=== PATIENT | female | born 2005 | race Caucasian/White ===

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

== ENCOUNTER → 2023-04-22 09:55 | Outpatient (POV) | payer OTHER, SELFPAY ==
--- NOTE | 2023-04-22 10:10 | A.OFFVIS_ITS ---
HPI Data of Consult Patient: new to practice Consult date: 04/22/23 Requesting Physician: Coretta Menjivar APRN Primary Care Provider: Yadi Martino APRN Consult Narrative History of present illness: Ms. Patino is a 17 year old female who presents today as a new patient. She is a referral from [facility]. Today she rates her pain an 8 out of 10. Patient states all of her pain is related to her face and jaw. Patient states she has been experiencing bilateral TMJ symptoms over more than 6 months. Patient states that this is unrelated to any specific trauma or injury. She states that she had been with some friends playing volleyball and the next day she woke up sore in her drawls with a tightness. She states it can come and go however she does experience significant popping and clicking with jaw movement. Patient states it does make it difficult to eat. Patient states the pain does interfere with her ability perform activities of daily living. Patient has been tried on [id number] Tylenol and ibuprofen along with prescription strength meloxicam by her primary care provider with minimal improvement. Patient has also tried ice. She does state that she frequently experiences sinus pressure and recurrent headaches due to the pain. She also states she has ear pressure and pain. She does state when she was younger she did frequently grind her teeth and that she has even been using a mouthguard to help minimize clenching her teeth at night however this was making her symptoms worse with more pre ssure. Patient is interested in any help we may be able to provide. Patient is not on any scheduled medications. Patient states she has had her hearing checked and everything came back normal. Her Narendra has been reviewed and is appropriate. CC: Coretta Menjivar APRN [facility] Disclaimer: The information contained in this section may have been updated after the patient was seen, as this information can be updated by other users. Medical History Type 1 diabetes Social History Smoking Status: Never smoker alcohol intake: never current occupational status: employed Travel in the last 8 weeks: None Review of Systems Review of Systems Review of systems:: pertinent systems reviewed and negative unless documented below Review of systems (narrative): Review of Systems: General: No recent weight changes, no fever, no sleep disturbances Respiratory: No cough, no shortness of air, no recurring pulmonary infections Cardiovascular/peripheral vascular: No chest pain, no palpitations, no edema, no shortness of breath Gastrointestinal: No new onset incontinence, normal bowel movements reported Genitourinary: No new onset incontinence Musculoskeletal: Bilateral jaw pain/popping/clicking Psychiatric: [Normal mood/affect] Neurological: [Denies weakness in extremities], [denies balance issues] Meds Home Medications and Allergies Home Medications Medication Instructions Recorded Confirmed Type insulin aspart U-100 100 unit/mL continuous subcutaneous infusion 12/29/22 03/25/23 History subcutaneous solution (Novolog U-100 Insulin aspart) norgestimate 0.18 mg/0.215 mg/0.25 1 tab PO DAILY 12/29/22 03/25/23 History mg-ethinyl estradiol 25 mcg tablet (Ytx-Am-Ftfbjexr) azelastine 137 mcg (0.1 %) nasal 2 spray intranasal BID 30 days #30 03/25/23 03/25/23 Rx spray aerosol mL glucagon 3 mg/actuation nasal 3 mg intranasal ONCE PRN 03/25/23 03/25/23 History spray (Baqsimi) meloxicam 7.5 mg tablet 7.5 mg PO DAILY 30 days #30 tabs 03/25/23 03/25/23 Rx sertraline 100 mg tablet 100 mg PO DAILY 30 days #30 tabs 03/25/23 03/25/23 Rx New Prescriptions to Start Prescriptions: Allergies Allergy/AdvReac Type Severity Reaction Status Date / Time No Known Allergies Allergy Verified 03/25/23 13:49 Objective Narrative: Physical Exam: General: Alert and oriented x3, no acute distress, pleasant and cooperative Lungs: Respirations even and unlabored, symmetrical chest expansion Eyes: PERRL Musculoskeletal: Flexion and extension of cervical spine within normal limits; point tenderness along bilateral TMJ Neurological: Speech clear, no gross sensory deficit Additional findings Additional findings: FINAL REPORT TECHNIQUE: Thin section axial CT with coronal reconstruction without IV contrast CLINICAL HISTORY: RT TEMPOROMANDIBULAR JOINT DISORDER,TMJ TENDERNESS RT COMPARISON: None FINDINGS: The mandible is without focal bony lesion or fracture. The TMJs are appropriately located without evidence of degenerative change or bony erosion. There is mild mucosal thickening of the paranasal sinuses most pronounced in the left ethmoid compatible with mild sinusitis. IMPRESSION: Unremarkable appearance of the mandible and TMJs. Mild sinus disease. Reviewed, Interpreted and Dictated by Moy Kerr MD Transcribed by Julia Das Authenticated and [facility] Assessment and Plan *Assessment and plan (1) TMJ dysfunction: Status: Acute Category: Medical Code(s): M26.609 - Unspecified temporomandibular joint disorder, unspecified side (2) Jaw pain: Status: Acute Category: Medical Code(s): R68.84 - Jaw pain Plan Patient is experiencing worsening pain in her bilateral jaws related to bilateral TMJ dysfunction. I have discussed with the patient that she may benefit from bilateral TMJ joint injection. Risk and benefits were discussed with the patient and she would like to proceed forward with this plan of care. I have also discussed with the patient in future that she may benefit from referral to ENT specialist. Patient states she would like to try the injections first. Patient will be scheduled for bilateral TMJ joint injections Patient has been instructed to contact the clinic with any concerns before the next appointment. Dr. Spencer has reviewed this note and agrees with this plan of care. This note was dictated using voice recognition software and make contain errors or omissions.
[2023-04-22 10:27] VITALS: BP 116/67; PULSE 74; RESP 18; O2SAT 100
== END ==
PROVIDERS: PCP Nurse Practitioner Family; Visit Provider Nurse Practitioner Family
DX: M26.603 Bilateral temporomandibular joint disorder, unspecified (principal); R68.84 Jaw pain
CPT/HCPCS: 99202; G0463

== ENCOUNTER 2023-05-01 11:49 | Day surgery (SDC) | payer OTHER, SELFPAY ==
[2023-05-01 12:23] VITALS: BP 121/75; PULSE 73; RESP 16; O2SAT 95
--- NOTE | 2023-05-01 12:26 | PC.NURSE ---
1220- PT BLOOD SUGAR 138 PER DEXCOM
[2023-05-01 12:35] VITALS: BP 116/64; PULSE 75; RESP 16; O2SAT 96
[2023-05-01] MEDS: LIDOCAINE 1% 5ML PF VIAL 5 ML (12:38)
--- NOTE | 2023-05-01 13:00 | P.PCN_ITS ---
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 She has failed all conservative therapy including wearing a bite guard. Will do bilateral temporomandibular joint injections today to see if this helps with her pain symptoms. Procedure Details:: Bilateral TMJ injection Informed consent was obtained risk and benefits of the procedure were explained to the patient. Patient was taken the procedure room. The area in front of the tragus at the temporomandibular joint was cleansed using alcohol prep. A 25- gauge needle was inserted on each side and we injected 3 mL bupivacaine 0.25% and Depo-Medrol 40 mg into each temporomandibular joint. The patient tolerated the procedure well with no complications. Plan and Disposition:: Will follow-up with this patient in 2 weeks. Will reevaluate symptoms at that time.
== END 2023-05-01 12:35 | disposition home or self-care (01) ==
LOC: SC.PAINP 11:51
PROVIDERS: PCP Nurse Practitioner Family; Visit Provider Anesthesiology
DX: M26.603 Bilateral temporomandibular joint disorder, unspecified (principal)
CPT/HCPCS: 20605; J1030

== ENCOUNTER → 2023-05-11 14:03 | Outpatient (POV) | payer OTHER, SELFPAY ==
--- NOTE | 2023-05-11 15:21 | EXP.PAIN.SOA ---
[facility] Pain Management SOAP Note Subjective:: Patient is a pleasant 17-year-old female who presents today for follow-up of bilateral TMJ joint injections on 05/01/2023. We are currently treating the patient for TMJ dysfunction. Today she rates her pain a 2 out of 10. Patient denies any new trauma or injury from our last visit. Patient states that following the injection she did not notice any improvement in her overall pain symptoms. She states that she was very sore the initial day of the injection but that she has noticed decreased popping and clicking sensations in her jaw with talking or chewing. She states that they are still there but it has calmed down from what it was previously. Patient does states she continues to have a tightness in her jaw. Patient is currently managed with meloxicam 7.5 mg daily. Patient denies any heart or kidney issues. Her Narendra has been reviewed and is appropriate. Review of Systems: General: No recent weight changes, no fever, no sleep disturbances Respiratory: No cough, no shortness of air, no recurring pulmonary infections Cardiovascular/peripheral vascular: No chest pain, no palpitations, no edema, no shortness of breath Gastrointestinal: No new onset incontinence, normal bowel movements reported Genitourinary: No new onset incontinence Musculoskeletal: Jaw tightness/pain Psychiatric: [Normal mood/affect] Neurological: [Denies weakness in extremities], [denies balance issues] Objective:: Physical Exam: General: Alert and oriented x3, no acute distress, pleasant and cooperative Lungs: Respirations even and unlabored, symmetrical chest expansion Eyes: PERRL Musculoskeletal: Flexion and extension of cervical spine within normal limits Neurological: Speech clear, no gross sensory deficit Assessment:: TMJ joint dysfunction Plan:: I have discussed with the patient that she may benefit from repeat TMJ joint injections however I have recommended that we increase her meloxicam to 15 mg daily first. I will send in a prescription for 1 month. Patient will return to clinic in 2 weeks for reevaluation of symptoms and plan of care. Patient has been instructed to contact the clinic with any concerns before the next appointment. Dr. Spencer has reviewed this note and agrees with this plan of care. This note was dictated using voice recognition software and make contain errors or omissions. [facility] Disclaimer: The information contained in this section may have been updated after the patient was seen, as this information can be updated by other users. Medical History Type 1 diabetes Family History Other Unknown family medical history Social History Smoking Status: Never smoker alcohol intake: never current occupational status: employed Travel in the last 8 weeks: None
[2023-05-11 15:40] VITALS: BP 112/74; PULSE 76; RESP 18; O2SAT 98
== END ==
LOC: SC.PAIN 14:04
PROVIDERS: PCP Nurse Practitioner Family; Visit Provider Nurse Practitioner Family
DX: M26.603 Bilateral temporomandibular joint disorder, unspecified (principal)
CPT/HCPCS: 99212; G0463

== ENCOUNTER → 2023-05-22 08:20 | Outpatient (POV) | payer OTHER, SELFPAY ==
[2023-05-22 08:36] VITALS: BP 117/73; PULSE 90; RESP 18; O2SAT 100; BMI 19.3
--- NOTE | 2023-05-22 08:48 | A.OFFVIS_ITS ---
[facility] Pain Management SOAP Note Subjective:: Patient is a pleasant 17-year-old female comes our clinic today for follow-up visit regarding bilateral TMJ joint injections on 05/01/2023. Also, she is following up to report on efficacy of meloxicam dose increased to 15 mg 1 p.o. twice daily. Patient seems to be doing some better. However, she admits not wearing her bite guard due to it being uncomfortable. I encouraged her to continue with bite guard. Meloxicam 15 mg 1 p.o. twice daily. Also, I gave the option to the patient to receive her meloxicam from her PCP. Objective:: Patient is awake alert [place] x 3. No acute distress. Flexion-extension lumbar spine somewhat guarded secondary to pain. Deep tendon reflexes upper and lower extremities normal. Motor strength upper and lower extremities normal. There is no gross sensory deficit. Gait is normal. Assessment:: Chronic jaw pain. Bilateral TMJ. Plan:: Patient will reach out to us if needed. [facility] Disclaimer: The information contained in this section may have been updated after the patient was seen, as this information can be updated by other users. Medical History Type 1 diabetes Family History Other Unknown family medical history Social History Smoking Status: Never smoker alcohol intake: never substance use type: denies use current occupational status: employed Travel in the last 8 weeks: None
== END ==
LOC: SC.PAIN 08:20
PROVIDERS: PCP Nurse Practitioner Family; Visit Provider Nurse Anesthetist, Certified Registered
DX: M26.603 Bilateral temporomandibular joint disorder, unspecified (principal); R68.84 Jaw pain; G89.29 Other chronic pain
CPT/HCPCS: 99212; G0463

== ENCOUNTER 2023-06-16 13:32 | Outpatient (CLI) | payer OTHER, SELFPAY | END 2023-06-16 23:59 | LOC: LAB.DROPOF 13:34 | PROVIDERS: PCP Nurse Practitioner Family; Visit Provider Nurse Practitioner Family | DX: J02.9 Acute pharyngitis, unspecified (principal) | CPT/HCPCS: 87070 ==

== ENCOUNTER 2023-07-09 15:01 | Outpatient (CLI) | payer OTHER, SELFPAY ==
[2023-07-09 15:01] LABS: Adenovirus,PCR Not Detected (NotDetected); Coronavirus 19, PCR Not Detected (NotDetected); Coronavirus 229E Not Detected (NotDetected); Coronavirus NL63 Not Detected (NotDetected); Coronavirus OC43 Not Detected (NotDetected); Coronovirus HKU1,PCR Not Detected (NotDetected); Human Metapneumovirus Not Detected (NotDetected); Influenza A, PCR Not Detected (NotDetected); Influenza AH1, 2009 Not Detected (NotDetected); Influenza AH1, PCR Not Detected (NotDetected); Influenza AH3,PCR Not Detected (NotDetected); Influenza B, PCR Not Detected (NotDetected); Parainfluenza 1, PCR Not Detected (NotDetected); Parainfluenza 2, PCR Not Detected (NotDetected); Parainfluenza 3, PCR Not Detected (NotDetected); Parainfluenza 4, PCR Not Detected (NotDetected); Respiratory Syncytial Virus Not Detected (NotDetected); Rhinovirus/Enterovirus Not Detected (NotDetected)
== END 2023-07-09 23:59 ==
LOC: LAB.DROPOF 15:02
PROVIDERS: PCP Nurse Practitioner Family; Visit Provider Nurse Practitioner Family
DX: J02.9 Acute pharyngitis, unspecified (principal); R05.9 Cough, unspecified; H92.03 Otalgia, bilateral
CPT/HCPCS: 87070; 87632; 87635

== ENCOUNTER 2023-08-31 22:09 | Outpatient (CLI) | payer OTHER, SELFPAY | END 2023-08-31 23:59 | disposition home or self-care (01) | LOC: LAB.DROPOF 22:11 | PROVIDERS: PCP Nurse Practitioner Family; Visit Provider Nurse Practitioner Family | DX: M54.50 Low back pain, unspecified (principal); B96.89 Other specified bacterial agents as the cause of diseases classified elsewhere | CPT/HCPCS: 87086; 87088; 87186 ==

== ENCOUNTER 2023-09-15 00:13 | Emergency (ER) | payer OTHER, SELFPAY ==
--- NOTE | 2023-09-15 00:16 | ED_ITS ---
Discharge Plan Disposition Patient Disposition: Home, Self-Care Prescriptions Prescriptions: New promethazine 25 mg tablet 25 mg PO Q6H PRN (Reason: nausea and vomiting) Qty: 20 0RF No Action Baqsimi 3 mg/actuation spray,non-aerosol 3 mg intranasal ONCE PRN (Reason: DIABETES) insulin aspart U-100 [Novolog U-100 Insulin aspart] 100 unit/mL solution See Rx Instructions .ROUTE .COMPLEX Rx Instructions: sliding scale sertraline 100 mg tablet 100 mg PO DAILY 30 Days Qty: 30 5RF norgestimate-ethinyl estradiol [Ortho Tri-Cyclen (28)] 0.18/0.215/0.25 mg-35 mcg (28) tablet 1 tab PO DAILY Qty: 84 3RF meloxicam 15 mg tablet 15 mg PO DAILY Qty: 30 3RF insulin glargine [Lantus Solostar U-100 Insulin] 100 unit/mL (3 mL) insulin pen SQ ondansetron 4 mg tablet,disintegrating 4 mg PO Q8H PRN (Reason: nausea and vomiting) Qty: 20 0RF amoxicillin 875 mg tablet 875 mg PO BID 10 Days Qty: 20 0RF nitrofurantoin monohyd/m-cryst [Macrobid] 100 mg capsule 100 mg PO BID 7 Days Qty: 14 0RF Rx Instructions: must administer with a meal/food Referrals Follow up/Referrals: Yadi Martino APRN [Primary Care Provider] - See instructions Activity Restrictions/Add. Instructions Additional Instructions/Restrictions: Please follow-up with your primary care provider. Please return to the emergency department if you develop any new or worsening symptoms or become concerned for your health. Clinical Impressions Clinical Impression: Abdominal cramping, Hypomagnesemia Nausea & vomiting Qualifiers: Vomiting type: unspecified Qualified Code(s): R11.2 - Nausea with vomiting, unspecified Stand Alone Forms Stand Alone Forms: Work/School Release Instructions Patient Instructions: DI for Diarrhea and Traveler's Diarrhea -- Adult, DI for Diarrhea and Traveler's Diarrhea -- Child, DI for Nausea -- Adult, DI for Nausea -- Child Discharge ED Provider: Mike Esteban Adult HPI General Chief complaint: Nausea/Vomiting/Diarrhea Stated complaint: vomiting possibly with blood, abd pain, chills, cp Time Seen by Provider: 09/15/23 00:16 History of Present Illness HPI narrative: 17-year-old female with history of type 1 diabetes presents for multiple complaints. She reports that she has been having nausea and vomiting for the last few hours. She reports generalized crampy abdominal pain. Some of vomiting was red, but she also took some [id number] nausea medication that was the same color as the vomit. She reports that she recently had a UTI and completed a full course of treatment. She denies any current urinary symptoms. She has an insulin pump and continuous glucose monitor, she reports her glucoses have been between 100-150. Related Data Home Medications Medication Instructions Recorded Confirmed glucagon 3 mg/actuation nasal 3 mg intranasal ONCE PRN DIABETES 03/25/23 08/31/23 spray (Baqsimi) insulin aspart U-100 100 unit/mL See Rx Instructions .Route 07/01/23 08/31/23 subcutaneous solution (Novolog .COMPLEX Diabetes U-100 Insulin aspart) insulin glargine 100 unit/mL (3 unit SQ 08/31/23 08/31/23 mL) subcutaneous pen (Lantus Solostar U-100 Insulin) Previous Rx's Medication Instructions Recorded sertraline 100 mg tablet 100 mg PO DAILY 30 days #30 tabs 03/25/23 norgestimate-ethinyl estradiol 1 tab PO DAILY #84 tabs 07/01/23 0.18 mg/0.215mg/0.25mg-35 mcg(28)tablet (Ortho Tri-Cyclen (28)) meloxicam 15 mg tablet 15 mg PO DAILY #30 tabs 07/15/23 amoxicillin 875 mg tablet 875 mg PO BID 10 days #20 tabs 08/31/23 ondansetron 4 mg disintegrating 4 mg PO Q8H PRN nausea and 08/31/23 tablet vomiting #20 tabs nitrofurantoin 100 mg PO BID 7 days #14 caps 09/04/23 monohydrate/macrocrystals 100 mg capsule (Macrobid) promethazine 25 mg tablet 25 mg PO Q6H PRN nausea and 09/15/23 vomiting #20 tabs Allergies Allergy/AdvReac Type Severity Reaction Status Date / Time No Known Allergies Allergy Verified 08/31/23 13:17 [facility] Disclaimer: The information contained in this section may have been updated after the patient was seen, as this information can be updated by other users. Medical History (Updated 09/15/23 @ 02:17 by Mike Esteban MD) Jaw pain Allergic rhinitis Upper respiratory infection Type 1 diabetes Family History Other Unknown family medical history Social History (Updated 08/31/23 @ 13:30 by ANNA Sarmiento) Smoking Status: Unknown if ever smoked alcohol intake: current alcohol intake frequency: holidays/special occasions only substance use type: denies use current occupational status: employed Travel in the last 8 weeks: None ROS Obtained: Yes All systems reviewed & no additional complaints except as documented Physical Exam General General appearance: alert and in no apparent distress Head Head exam: atraumatic and normocephalic Eye Eye exam: Present normal appearance, PERRL and EOMI ENT ENT exam: Present normal oropharynx and normal external ear exam Neck Neck exam: Present normal inspection and full ROM Chest Chest inspection: Present normal inspection and symmetric chest wall rise; Absent tenderness Respiratory Respiratory exam: Present normal lung sounds bilaterally; Absent respiratory distress Cardiovascular Cardiovascular exam: Present regular rate and normal rhythm Abdominal Exam Abdominal exam: Present soft and tenderness (Mild, generalized); Absent distention or guarding Extremities Exam Extremities exam: Present normal inspection; Absent edema or joint swelling Back Exam Back exam: Present normal inspection; Absent tenderness Neurological Exam Neurological exam: Present alert and oriented X3; Absent motor sensory deficit Psychiatric Psychiatric exam: Present normal affect and normal mood Skin Skin exam: Present warm, dry and normal color Lymphatic Lymphatic Findings: no adenopathy Medical Decision Making Medical Records Medical records reviewed: Yes I reviewed the patient's medical records. Narendra Inquiry Pt receiving controlled substance: No Narendra was queried for this patient: No Vital Signs: 09/15/23 00:23 09/15/23 02:50 Temperature 98.0 F 98.2 F Temperature Source Oral Oral Pulse Rate 106 H Pulse Rate [Right Brachial] 89 Respiratory Rate 19 18 Blood Pressure 122/72 Blood Pressure [Right Arm] 121/73 Blood Pressure Mean [Right Arm] 89 Blood Pressure Source [Right Arm] Automatic Cuff Blood Pressure Position [Right Arm] Sitting 02 Sat by Pulse Oximetry 98 Oxygen Delivery Method Room Air Room Air Lab Data Lab results reviewed: Yes I reviewed the patient's lab results. Lab Results 09/15/23 00:20: WBC 15.8 H, RBC 5.13, Hgb 16.0, Hct 48.0 H, MCV 93.7, MCH 31.3 H , MCHC 33.4, RDW 13.5, Plt Count 312, MPV 7.8, Neut % (Auto) 86.7 H, Lymph % (Auto) 8.4 L, [place] % (Auto) 1.3 L, Eos % (Auto) 3.2, Baso % (Auto) 0.5, Neut # (Auto) 13.7 H, Lymph # (Auto) 1.3, [place] # (Auto) 0.2, Eos # (Auto) 0.5 H, Baso # (Auto) 0.1, Total Counted 100, Neutrophils % (Manual) 84 H, Lymphocytes % (Manual) 13, Eosinophils % (Manual) 3, Platelet Estimate Normal, RBC Morphology Normal, Sodium 139, Potassium 3.7, Chloride 105, Carbon Dioxide 24, Anion Gap 13.7, BUN 13, Creatinine 0.90, Estimated Creat Clear 89, Estimated GFR 81, Est GFR ( Amer) 98, Glucose 121 H, Calcium 9.6, Magnesium 1.4 L, Total Bilirubin 0.7, AST 32, ALT 18, Alkaline Phosphatase 77, Total Protein 8.5 H, Albumin 4.9, Globulin 3.6 H, Albumin/Globulin Ratio 1.4, Lipase 39, Serum HCG, Qual Negative 09/15/23 00:23: VBG pH 7.34, VBG pCO2 39.7, VBG pO2 33.0, VBG HCO3 21.0 L, VBG Total CO2 22.2 L, VBG O2 Saturation 67.4, VBG Base Excess -4.4 L, VBG Lactic Acid 1.4 09/15/23 00:20 09/15/23 00:20 Orders (Tests/Meds): ED MEDICATIONS Discontinued Medications Generic Name Dose Route Start Last Admin Trade Name Freq PRN Reason Stop Dose Admin Lactated Ringer's 1,000 mls @ 999 mls/hr 09/15/23 00:30 09/15/23 01:11 Lactated Ringer's 1000 Ml Bag IV 09/15/23 02:30 999 mls/hr .Q1H1M FIDEL Administration Magnesium Sulfate 2 gm in 50 mls @ 50 mls/hr 09/15/23 00:50 09/15/23 00:55 Magnesium Sulfate 2gm/50ml Premix IV 09/15/23 01:49 50 mls/hr ONCE ONE Administration Ondansetron HCl 4 mg 09/15/23 00:23 09/15/23 00:28 Ondansetron 4mg/2ml Vial IV 09/15/23 00:24 4 mg ONCE ONE Administration ORDERS Category Date Time Status CBC w/Auto Diff [Complete Blood Count Auto Diff] Stat Lab 09/15/23 00:20 Completed CMP [Comprehensive Metabolic Panel] Stat Lab 09/15/23 00:20 Completed Lipase Stat Lab 09/15/23 00:20 Completed MAG [Magnesium] Stat Lab 09/15/23 00:20 Completed Serum [HCG Qualitative, Serum] Stat Lab 09/15/23 00:20 Completed VBG [Venous Blood Gas] Stat RT 09/15/23 00:23 Completed ECG Data Tracing #1: I reviewed this ECG and interpreted as documented below: Sinus rhythm, mild tachycardia with rate 116, minimal ST depression noted diffusely. No ST elevation, no evidence of arrhythmia. ECG initial impression date: 09/15/23 ECG initial impression time: 00:30 Medical Decision Narrative: 17-year-old female with history of type 1 diabetes presents with a few hours of nausea vomiting and crampy abdominal pain. History was obtained interactive discussion with patient, family, chart review. On arrival, patient is [afebrile, hemodynamically stable, satting appropriately, alert, oriented x4, GCS 15], moving all extremities spontaneously. Full physical exam performed and significant for mild tachycardia, mild generalized abdominal discomfort, no focal abdominal tenderness, no peritonitis Differential includes but is not limited to gastroenteritis, food poisoning, dehydration, DKA, electrolyte derangement, cholecystitis, pancreatitis, . Patient was given 2 L LR, 4 mg Zofran for symptomatic management and correction of underlying abnormalities. Workup initiated including CBC CMP qualitative beta hCG, mag,. On re-evaluation, patient [remains afebrile, HD stable.] Reports some symptomatic improvement. Has had no vomiting since arrival to the ER. Laboratory workup independently interpreted by me and significant for mild leukocytosis, mild hypomagnesemia which was repleted IV.. VBG shows no evidence of significant acidosis. CT imaging was considered, but deemed unnecessary due to no focal abdominal tenderness on exam. Given patient history, exam and workup, patient's presentation most likely represents gastroenteritis. No evidence of DKA or other emergent pathology at this time. Patient discharged in stable condition with prescription for Phenergan. Procedures Risk/Benefits of Procedure(s) Were Explained: Yes Critical Care Critical Care Time Critical Care Time: No
[2023-09-15 00:23] VITALS: BP 121/73; PULSE 89; RESP 19; TEMP 36.7; O2SAT 98
--- NOTE | 2023-09-15 00:25 | ECG_ITS ---
APPROVED REPORT Exam: Resting ECG HR:116 bpm ECG Measurements Heart Rate 116 AXES LA 99 P 70 QRSd 78 QRS 84 QT 299 T 72 QTc 368 Conclusion SINUS TACHYCARDIA WITH SHORT LA INTERVAL POSSIBLE RIGHT ATRIAL ENLARGEMENT [0.25mV P-WAVE] POSSIBLE RIGHT VENTRICULAR CONDUCTION DELAY [RSR (QR) IN V1/V2] MODERATE ST DEPRESSION [0.05+ mV ST DEPRESSION] ABNORMAL ECG UNCONFIRMED REPORT Electronically signed by : SHANI DASILVA, 09/15/2023 02:49:28
[2023-09-15] MEDS: LACTATED RINGERS 1000ML 1,000 ML 999 ML IV ×2 (00:28→01:11)
[2023-09-15] MEDS: ONDANSETRON 4MG/2ML VIAL 4 MG IV (00:28)
[2023-09-15 00:30] LABS: Basophils # 0.1 K/mm3 (0-0.2); Basophils % 0.5 % (0.1-2.0); Eosinophils # 0.5 K/mm3 (0.0-0.4); Eosinophils % 3.2 % (0.1-12.0); Lymphocytes # 1.3 K/mm3 (0.7-4.5); Lymphocytes % 8.4 % (10-50); Mean Corpuscular HGB Conc 33.4 g/dL (31.8-35.4); Mean Corpuscular Hemoglobin 31.3 pg (27.0-31.2); Mean Corpuscular Volume 93.7 fl (81-99); Mean Platelet Volume 7.8 fl (7.4-10.4); Monocytes # 0.2 K/mm3 (0.1-1.0); Monocytes % 1.3 % (1.7-9.3); Neutrophils # 13.7 K/mm3 (1.8-7.8); Neutrophils % 86.7 % (37.0-80.0); Platelet Count 312 K/mm3 (142-424); Red Blood Count 5.13 M/mm3 (4.20-5.40); Red Cell Distribution Width 13.5 % (11.5-17.5); White Blood Count 15.8 K/mm3 (4.5-13.0)
[2023-09-15 00:42] LABS: Chloride 105 mmol/L (98-107); Potassium 3.7 mmoL/L (3.5-5.1); Sodium 139 mmol/L (136-145)
[2023-09-15 00:44] LABS: HCG Qualitative, Serum Negative (Negative)
[2023-09-15 00:45] LABS: Alanine Aminotransferase 18 U/L (12-78); Albumin Level 4.9 g/dl (3.5-5.0); Albumin/Globulin Ratio 1.4 (1.1-1.8); Alkaline Phosphatase 77 U/L (38-126); Anion Gap 13.7 mEq/L (5-15); Aspartate Amino Transferase 32 U/L (14-36); Bilirubin,Total 0.7 mg/dl (0.2-1.3); Blood Urea Nitrogen 13 mg/dl (7-17); Carbon Dioxide 24 mmol/L (22.0-30.0); Creatinine Clearance Estimated 89 mL/min (50-200); Estimated Glomerular Filt Rate 81 ml/min (>60); GFR (African American) 98 ML/MIN (>60); Globulin 3.6 g/dL (1.3-3.2); Lipase 39 U/L (23-300); MANUAL DIFFERENTIAL MANUAL DIFFERENTIAL (MANUAL DIFF); Total Protein,Serum 8.5 g/dl (6.3-8.2)
[2023-09-15 00:46] LABS: Calcium 9.6 mg/dl (8.4-10.2); Glucose 121 mg/dl (74-100); Magnesium 1.4 mg/dl (1.6-2.3)
[2023-09-15] MEDS: MAGNESIUM SULFATE IN WATER 2 GM/50 ML PIGGYBACK IV (00:55)
[2023-09-15 01:37] LABS: Eosinophils % 3 % (0-3); Lymphocytes % 13 % (10-50); Neutrophils % 84 % (42-76); Platelet Estimate Normal; RBC Morphology Normal; Total Cells Counted 100
--- NOTE | 2023-09-15 01:49 | PC.NURSE ---
RESP CARE NOTE: VBG machine offline. Results will be put into the system once machine comes back online. Results have been relayed to Reta Trent RN
[2023-09-15 02:18] LABS: VBG Base Excess -4.4 mmol/L (-2.4-2.3); VBG PCO2 39.7 mmol/L (35-51); VBG PH 7.34 mmol/L (7.31-7.41); VBG Total CO2 22.2 mmol/L (23-27)
[2023-09-15 02:19] LABS: Lactate Venous 1.4 mmol/L (0.4-2.0); VBG Oxygen Saturation 67.4 % (50-70)
[2023-09-15 02:50] VITALS: BP 122/72; PULSE 106; RESP 18; TEMP 36.8; O2SAT 98
== END 2023-09-15 02:52 | disposition home or self-care (01) ==
PROVIDERS: Emergency Provider Emergency Medicine; PCP Nurse Practitioner Family
DX: R10.817 Generalized abdominal tenderness (principal); R11.2 Nausea with vomiting, unspecified; R00.0 Tachycardia, unspecified; E83.42 Hypomagnesemia; E10.9 Type 1 diabetes mellitus without complications; Z79.4 Long term (current) use of insulin
CPT/HCPCS: 80053; 82803; 83690; 83735; 84703; 85007; 85025; 93005; 96365; 96375; 99284; J2405; J3475; J7120

== ENCOUNTER 2023-09-15 14:27 | Emergency (ER) | payer OTHER, SELFPAY ==
[2023-09-15 15:30] VITALS: BP 105/70; PULSE 114; RESP 18; TEMP 37.8; O2SAT 100; BMI 20.2
--- NOTE | 2023-09-15 15:39 | EXP.UTC ---
Discharge Plan Disposition Patient Disposition: Home, Self-Care Condition: Good Prescriptions Prescriptions: No Action Baqsimi 3 mg/actuation spray,non-aerosol 3 mg intranasal ONCE PRN (Reason: DIABETES) insulin aspart U-100 [Novolog U-100 Insulin aspart] 100 unit/mL solution See Rx Instructions .ROUTE .COMPLEX Rx Instructions: sliding scale sertraline 100 mg tablet 100 mg PO DAILY 30 Days Qty: 30 5RF norgestimate-ethinyl estradiol [Ortho Tri-Cyclen (28)] 0.18/0.215/0.25 mg-35 mcg (28) tablet 1 tab PO DAILY Qty: 84 3RF meloxicam 15 mg tablet 15 mg PO DAILY Qty: 30 3RF insulin glargine [Lantus Solostar U-100 Insulin] 100 unit/mL (3 mL) insulin pen See Rx Instructions .ROUTE .COMPLEX Rx Instructions: see rx instruction ondansetron 4 mg tablet,disintegrating 4 mg PO Q8H PRN (Reason: nausea and vomiting) Qty: 20 0RF promethazine 25 mg tablet 25 mg PO Q6H PRN (Reason: nausea and vomiting) Qty: 20 0RF Referrals Follow up/Referrals: Yadi Martino APRN [Primary Care Provider] - See instructions Activity Restrictions/Add. Instructions Additional Instructions/Restrictions: Drink plenty of fluids. Take tylenol or ibuprofen for pain or fever. Take the medications as directed. Follow up with your regular doctor. GO TO THE ER FOR ANY WORSENING SYMPTOMS Get the promethazine from your pharmacy that was prescribed by the ER yesterday. Start taking this for nausea if the zofran in not working. Clinical Impressions Clinical Impression: Gastroenteritis Instructions Patient Instructions: Viral Gastroenteritis, DI for Viral Gastroenteritis -- Adult Discharge ED Provider: Joe Heredia [facility] General Stated complaint: vomiting Time Seen by Provider: 09/15/23 15:38 History of Present Illness Provider Complaint: She comes back in today after being in the er yesterday with abdominal pain and n/v/d. She states that she has felt worse instead of better since going home from the ER. She states that she has been having worsening abdominal cramping. She denies constant abdominal pain. She has been taking zofran for n/v and it has not been controlling it. She has not picked up the promethazine that was prescribed by the ER yesterday. She has had low grade fever also. She is a type 1 diabetic that uses an insulin pump to control her blood sugars. She states that her blood sugars have been running from 120 to 150 (her normal levels). Related Data Home Medications Medication Instructions Recorded Confirmed glucagon 3 mg/actuation nasal 3 mg intranasal ONCE PRN DIABETES 03/25/23 09/15/23 spray (Baqsimi) insulin aspart U-100 100 unit/mL See Rx Instructions .Route 07/01/23 09/15/23 subcutaneous solution (Novolog .COMPLEX Diabetes U-100 Insulin aspart) insulin glargine 100 unit/mL (3 See Rx Instructions .Route .COMPLEX 08/31/23 09/15/23 mL) subcutaneous pen (Lantus Solostar U-100 Insulin) Previous Rx's Medication Instructions Recorded sertraline 100 mg tablet 100 mg PO DAILY 30 days #30 tabs 03/25/23 norgestimate-ethinyl estradiol 1 tab PO DAILY #84 tabs 07/01/23 0.18 mg/0.215mg/0.25mg-35 mcg(28)tablet (Ortho Tri-Cyclen (28)) meloxicam 15 mg tablet 15 mg PO DAILY #30 tabs 07/15/23 ondansetron 4 mg disintegrating 4 mg PO Q8H PRN nausea and 08/31/23 tablet vomiting #20 tabs promethazine 25 mg tablet 25 mg PO Q6H PRN nausea and 09/15/23 vomiting #20 tabs Allergies Allergy/AdvReac Type Severity Reaction Status Date / Time No Known Allergies Allergy Verified 09/15/23 15:52 [facility] Disclaimer: The information contained in this section may have been updated after the patient was seen, as this information can be updated by other users. Medical History (Updated 09/15/23 @ 17:26 by Joe Heredia APRN) Jaw pain Allergic rhinitis Upper respiratory infection Type 1 diabetes Family History Other Unknown family medical history Social History Smoking Status: Unknown if ever smoked alcohol intake: current alcohol intake frequency: holidays/special occasions only substance use type: denies use current occupational status: employed Travel in the last 8 weeks: None ROS Obtained: Yes All systems reviewed & no additional complaints except as documented Constitutional Constitutional: Denies chills, Denies fever(s) and Reports poor appetite ENT Ears, Nose, Mouth, and Throat: Denies dizziness and Denies sore throat Cardiovascular Cardiovascular: Denies dyspnea Respiratory Respiratory: Denies chest congestion, Denies cough and Denies dyspnea Gastrointestinal Gastrointestingal: Reports as per HPI, cramping, diarrhea, loose stools, nausea and vomiting; Denies abdominal pain, hematochezia or melena Genitourinary Female Genitourinary: Denies difficulty voiding, Denies dysuria, Denies hematuria, Denies urinary frequency, Denies urinary incontinence, Denies urinary hesitancy and Denies urinary urgency Musculoskeletal Musculoskeletal: Denies arthralgias Integumentary/Breasts Skin/Breast: Denies rash Neurologic Neurologic: Denies dizziness Physical Exam General General appearance: alert and in no apparent distress Head Head exam: atraumatic and normocephalic Eye Eye exam: Present normal appearance, PERRL and EOMI ENT ENT exam: Present normal exam, normal oropharynx, mucous membranes moist, TM's normal bilaterally and normal external ear exam Neck Neck exam: Present normal inspection, full ROM and trachea midline; Absent tenderness, meningismus or lymphadenopathy Chest Chest inspection: Present normal inspection and symmetric chest wall rise; Absent tenderness, rash or abscess Respiratory Respiratory exam: Present normal lung sounds bilaterally; Absent respiratory distress, wheezes or stridor Cardiovascular Cardiovascular exam: Present regular rate and normal rhythm; Absent irregular rhythm, systolic murmur, diastolic murmur or JVD Abdominal Exam Abdominal exam: Present soft and hyperactive bowel sounds; Absent distention, tenderness, guarding, rebound, rigidity, psoas sign, obturator sign, heel tap sign, Ramirez's sign, Rovsing's sign or tenderness at McBurney's Point Extremities Exam Extremities exam: Present normal inspection and full ROM; Absent tenderness Back Exam Back exam: Present normal inspection and full ROM; Absent tenderness, CVA tenderness (R) or CVA tenderness (L) Neurological Exam Neurological exam: Present alert, oriented X3 and CN II-XII intact Psychiatric Psychiatric exam: Present normal affect and normal mood Skin Skin exam: Present warm, dry, intact and normal color Lymphatic Lymphatic Findings: no adenopathy Medical Decision Making Medical Records Medical records reviewed: No I reviewed the patient's medical records. Narendra Inquiry Pt receiving controlled substance: No Lab Data Lab results reviewed: Yes I reviewed the patient's lab results. 09/15/23 16:10 09/15/23 16:10 Orders (Tests/Meds): ORDERS Category Date Time Status Full Resp Panel w/COVID ([facility] [place]) Routine Lab 09/15/23 15:35 Ordered
[2023-09-15 15:42] LABS: Adenovirus,PCR Not Detected (NotDetected); Bordetella Pertussis Not Detected (NotDetected); Chlamydophila Pneumoniae, PCR Not Detected (NotDetected); Coronavirus 19, PCR Not Detected (NotDetected); Coronavirus 229E Not Detected (NotDetected); Coronavirus NL63 Not Detected (NotDetected); Coronavirus OC43 Not Detected (NotDetected); Coronovirus HKU1,PCR Not Detected (NotDetected); Human Metapneumovirus Not Detected (NotDetected); Influenza A, PCR Not Detected (NotDetected); Influenza AH1, 2009 Not Detected (NotDetected); Influenza AH1, PCR Not Detected (NotDetected); Influenza AH3,PCR Not Detected (NotDetected); Influenza B, PCR Not Detected (NotDetected); Mycoplasma Pneumoniae, PCR Not Detected (NotDetected); Parainfluenza 1, PCR Not Detected (NotDetected); Parainfluenza 2, PCR Not Detected (NotDetected); Parainfluenza 3, PCR Not Detected (NotDetected); Parainfluenza 4, PCR Not Detected (NotDetected); Respiratory Syncytial Virus Not Detected (NotDetected); Rhinovirus/Enterovirus Not Detected (NotDetected)
[2023-09-15] MEDS: 0.9 % SODIUM CHLORIDE 1000ML 1,000 ML 500 ML IV (16:04)
[2023-09-15] MEDS: PROMETHAZINE HCL 25MG/ML 1ML VIAL 12.5 MG IV (16:25)
[2023-09-15] MEDS: SODIUM CHLORIDE 0.9% 25ML BAG 25 ML IV (16:26)
--- NOTE | 2023-09-15 16:33 | PC.NURSE ---
Sent blood to lab via tube system
[2023-09-15 17:14] LABS: Basophils % 0.5 % (0.1-2.0); Eosinophils # 0.2 K/mm3 (0.0-0.4); Eosinophils % 2.1 % (0.1-12.0); Hematocrit 46.5 % (37.0-47.0); Hemoglobin 15.2 g/dL (12.2-16.2); Lymphocytes # 0.7 K/mm3 (0.7-4.5); Lymphocytes % 8.1 % (10-50); Mean Corpuscular HGB Conc 32.7 g/dL (31.8-35.4); Mean Corpuscular Hemoglobin 30.7 pg (27.0-31.2); Mean Corpuscular Volume 93.7 fl (81-99); Mean Platelet Volume 8.2 fl (7.4-10.4); Monocytes # 0.3 K/mm3 (0.1-1.0); Monocytes % 3.4 % (1.7-9.3); Neutrophils # 7.3 K/mm3 (1.8-7.8); Neutrophils % 85.9 % (37.0-80.0); Platelet Count 284 K/mm3 (142-424); Red Blood Count 4.97 M/mm3 (4.20-5.40); Red Cell Distribution Width 13.5 % (11.5-17.5); White Blood Count 8.5 K/mm3 (4.5-13.0)
[2023-09-15 17:16] LABS: MANUAL DIFFERENTIAL MANUAL DIFFERENTIAL (MANUAL DIFF)
[2023-09-15 17:18] LABS: Chloride 101 mmol/L (98-107); Potassium 4.1 mmoL/L (3.5-5.1); Sodium 137 mmol/L (136-145)
[2023-09-15 17:20] LABS: Amylase 100 U/L (30-110); Blood Urea Nitrogen 13 mg/dl (7-17); Creatinine Clearance Estimated 102 mL/min (50-200); Estimated Glomerular Filt Rate 92 ml/min (>60); GFR (African American) 112 ML/MIN (>60)
[2023-09-15 17:21] LABS: Acetone, Serum (Rapid) None Detected (None Detect); Alanine Aminotransferase 20 U/L (12-78); Albumin Level 4.6 g/dl (3.5-5.0); Albumin/Globulin Ratio 1.4 (1.1-1.8); Alkaline Phosphatase 71 U/L (38-126); Anion Gap 15.1 mEq/L (5-15); Aspartate Amino Transferase 35 U/L (14-36); Bilirubin,Total 1.1 mg/dl (0.2-1.3); Calcium 9.3 mg/dl (8.4-10.2); Carbon Dioxide 25 mmol/L (22.0-30.0); Globulin 3.2 g/dL (1.3-3.2); Glucose 128 mg/dl (74-100); Lipase 24 U/L (23-300); Total Protein,Serum 7.8 g/dl (6.3-8.2)
[2023-09-15 17:27] LABS: Lactic Acid 1.1 mmol/L (0.7-2.1)
[2023-09-15 17:35] LABS: Magnesium 1.7 mg/dl (1.6-2.3)
[2023-09-15 17:41] LABS: Eosinophils % 1 % (0-3); Lymphocytes % 8 % (10-50); Monocytes % 1 % (2-9); Neutrophils % 84 % (42-76); Total Cells Counted 100
[2023-09-15 17:42] LABS: Anisocytosis 1+; Platelet Estimate Normal; Stomatocytes 1+
[2023-09-15 17:59] VITALS: BP 105/70; PULSE 114; RESP 18; TEMP 37.2; O2SAT 98
--- NOTE | 2023-09-15 18:00 | PC.NURSE ---
Father was here to drive her home
== END 2023-09-15 17:59 | disposition home or self-care (01) ==
PROVIDERS: Emergency Provider Nurse Practitioner Family; PCP Nurse Practitioner Family
DX: K52.9 Noninfective gastroenteritis and colitis, unspecified (principal); R11.2 Nausea with vomiting, unspecified; E10.9 Type 1 diabetes mellitus without complications; Z79.4 Long term (current) use of insulin; R10.819 Abdominal tenderness, unspecified site
CPT/HCPCS: 80053; 82009; 82150; 83605; 83690; 83735; 85007; 85025; 87581; 87632; 87635; 87798; 96361; 96374; 99212; 99214; G0463

== ENCOUNTER 2023-09-18 17:00 | Outpatient (CLI) | payer OTHER, SELFPAY ==
[2023-09-18 17:19] LABS: Basophils # 0.1 K/mm3 (0-0.2); Eosinophils # 0.2 K/mm3 (0.0-0.4); Eosinophils % 4.4 % (0.1-12.0); Hematocrit 46.8 % (37.0-47.0); Lymphocytes % 35.7 % (10-50); Mean Corpuscular HGB Conc 32.1 g/dL (31.8-35.4); Mean Corpuscular Hemoglobin 30.7 pg (27.0-31.2); Mean Corpuscular Volume 95.7 fl (81-99); Mean Platelet Volume 9.4 fl (7.4-10.4); Monocytes # 0.2 K/mm3 (0.1-1.0); Monocytes % 3.9 % (1.7-9.3); Platelet Count 329 K/mm3 (142-424); Red Blood Count 4.89 M/mm3 (4.20-5.40); Red Cell Distribution Width 13.4 % (11.5-17.5); White Blood Count 5.5 K/mm3 (4.5-13.0)
[2023-09-18 17:57] LABS: Alanine Aminotransferase 28 U/L (12-78); Albumin Level 4.4 g/dl (3.5-5.0); Albumin/Globulin Ratio 1.5 (1.1-1.8); Alkaline Phosphatase 61 U/L (38-126); Amylase 83 U/L (30-110); Anion Gap 18.3 mEq/L (5-15); Aspartate Amino Transferase 36 U/L (14-36); Bilirubin,Total 0.4 mg/dl (0.2-1.3); Blood Urea Nitrogen 4 mg/dl (7-17); Calcium 9.5 mg/dl (8.4-10.2); Carbon Dioxide 27 mmol/L (22.0-30.0); Chloride 101 mmol/L (98-107); Estimated Glomerular Filt Rate 108 ml/min (>60); GFR (African American) 130 ML/MIN (>60); Globulin 2.9 g/dL (1.3-3.2); Glucose 198 mg/dl (74-100); Lipase 57 U/L (23-300); Potassium 4.3 mmoL/L (3.5-5.1); Sodium 142 mmol/L (136-145); Total Protein,Serum 7.3 g/dl (6.3-8.2)
== END 2023-09-18 23:59 | disposition home or self-care (01) ==
LOC: LAB.DROPOF 17:00
PROVIDERS: PCP Nurse Practitioner Family; Visit Provider Nurse Practitioner Family
DX: D72.829 Elevated white blood cell count, unspecified (principal); R11.0 Nausea
CPT/HCPCS: 80053; 82150; 83690; 85025

== ENCOUNTER 2023-11-19 18:21 | Outpatient (CLI) | payer OTHER, SELFPAY | END 2023-11-19 23:59 | disposition home or self-care (01) | LOC: LAB.DROPOF 18:22 | PROVIDERS: PCP Nurse Practitioner Family; Visit Provider Nurse Practitioner Family | DX: N89.8 Other specified noninflammatory disorders of vagina (principal); R82.90 Unspecified abnormal findings in urine | CPT/HCPCS: 87086 ==

== ENCOUNTER 2024-01-10 12:48 | Emergency (ER) | payer OTHER, SELFPAY ==
[2024-01-10 13:07] VITALS: BP 116/78; PULSE 68; RESP 18; TEMP 36.6; O2SAT 100; BMI 20.5
[2024-01-10 13:10] LABS: Apearance,Urine Clear (Clear); Bilirubin,Urine Negative (Negative); Color,Urine Yellow (Yellow); Glucose,Urine (UA) 100 (Negative); Ketones,Urine Negative (Negative); Protein,Urine Negative (Negative); Urobilinogen,Urine 0.2 EU/dl (0.2)
[2024-01-10 13:11] LABS: Blood, Urine 1+ (Negative); UTC Leukocyte Esterase,Urine 1+ (Negative); UTC Nitrate,Urine Negative (Negative)
--- NOTE | 2024-01-10 13:14 | ED_ITS ---
Discharge Plan Disposition Patient Disposition: Home, Self-Care Condition: Good Prescriptions Prescriptions: New phenazopyridine [Pyridium] 200 mg tablet 200 mg PO Q8H 2 Days Qty: 6 0RF sulfamethoxazole-trimethoprim [Bactrim DS] 800-160 mg Tablet 1 tab PO BID Qty: 14 0RF No Action Baqsimi 3 mg/actuation spray,non-aerosol 3 mg intranasal ONCE PRN (Reason: DIABETES) insulin aspart U-100 [Novolog U-100 Insulin aspart] 100 unit/mL solution See Rx Instructions .ROUTE .COMPLEX Rx Instructions: sliding scale norgestimate-ethinyl estradiol [Ortho Tri-Cyclen (28)] 0.18/0.215/0.25 mg-35 mcg (28) tablet 1 tab PO DAILY Qty: 84 3RF meloxicam 15 mg tablet 15 mg PO DAILY Qty: 30 3RF insulin glargine [Lantus Solostar U-100 Insulin] 100 unit/mL (3 mL) insulin pen See Rx Instructions .ROUTE .COMPLEX Rx Instructions: see rx instruction ondansetron 4 mg tablet,disintegrating 4 mg PO Q8H PRN (Reason: nausea and vomiting) Qty: 20 0RF nitrofurantoin monohyd/m-cryst [Macrobid] 100 mg capsule 100 mg PO Q12H 7 Days Qty: 14 0RF Rx Instructions: must administer with a meal/food fluconazole 150 mg tablet 150 mg PO Q3D Qty: 2 0RF sertraline 100 mg tablet 100 mg PO DAILY 30 Days Qty: 30 5RF Referrals Follow up/Referrals: Yadi Martino APRN [Primary Care Provider] - See instructions Activity Restrictions/Add. Instructions Additional Instructions/Restrictions: Drink plenty of fluids. Take tylenol or ibuprofen for pain or fever. Take the medications as directed. Follow up with your regular doctor. GO TO THE ER FOR ANY WORSENING SYMPTOMS The pyridium will make your urine turn orange, this is an expected side effect. It will stain your clothes if it comes into contact with them. We will culture the urine. That will tell what bacteria is causing your infection and which antibiotics will treat it best.This test takes 3 days to complete. Clinical Impressions Clinical Impression: UTI (urinary tract infection) Instructions Patient Instructions: Urine Culture, DI for Urinary Tract Infection (UTI), Phenazopyridine Print Language Print Language: Greenlandic Discharge ED Provider: Joe Heredia [facility] [place] HPI General Stated complaint: possible UTI Mode of Arrival: Ambulatory Source of Information: Patient Limitations: No Limitations Time Seen by Provider: 01/10/24 13:13 Description of Symptoms (Recalled from Triage Doc. by RN): Reports possible uti. Urinary frequency. HEENT Symptoms (Recalled from RN notes): No Resp Symptoms (Recalled from RN notes): No Skin Symptoms (Recalled from RN notes): No MS Symptoms (Recalled from RN notes): No Functional Status (Recalled from RN notes): wnl Related Data Home Medications ?Medication ?Instructions ?Recorded ?Confirmed glucagon 3 mg/actuation nasal 3 mg intranasal ONCE PRN DIABETES 03/25/23 11/19/23 spray (Baqsimi) insulin aspart U-100 100 unit/mL See Rx Instructions .Route 07/01/23 11/19/23 subcutaneous solution (Novolog .COMPLEX Diabetes U-100 Insulin aspart) insulin glargine 100 unit/mL (3 See Rx Instructions .Route .COMPLEX 08/31/23 11/19/23 mL) subcutaneous pen (Lantus Solostar U-100 Insulin) Previous Rx's ?Medication ?Instructions ?Recorded norgestimate-ethinyl estradiol 1 tab PO DAILY #84 tabs 07/01/23 0.18 mg/0.215mg/0.25mg-35 mcg(28)tablet (Ortho Tri-Cyclen (28)) meloxicam 15 mg tablet 15 mg PO DAILY #30 tabs 07/15/23 ondansetron 4 mg disintegrating 4 mg PO Q8H PRN nausea and 08/31/23 tablet vomiting #20 tabs sertraline 100 mg tablet 100 mg PO DAILY 30 days #30 tabs 11/04/23 fluconazole 150 mg tablet 150 mg PO Q3D 2 doses #2 tabs 11/19/23 nitrofurantoin 100 mg PO Q12H 7 days #14 caps 11/19/23 monohydrate/macrocrystals 100 mg capsule (Macrobid) phenazopyridine 200 mg tablet 200 mg PO Q8H 2 days #6 tabs 01/10/24 (Pyridium) sulfamethoxazole 800 1 tab PO BID #14 tabs 01/10/24 mg-trimethoprim 160 mg tablet (Bactrim DS) Allergies Allergy/AdvReac Type Severity Reaction Status Date / Time No Known Allergies Allergy Verified 11/19/23 10:31 Worker's Comp Is this a Worker's Comp case?: No [facility] Disclaimer: The information contained in this section may have been updated after the patient was seen, as this information can be updated by other users. Medical History (Updated 01/10/24 @ 13:27 by Joe Heredia APRN) Pharyngitis Ankle sprain Right otitis media Viral respiratory illness Tenosynovitis of hand Pain of right thumb Dysuria Nausea & vomiting Hypomagnesemia Abdominal cramping Gastroenteritis Acute cystitis Leukocytosis Nausea Jaw pain Allergic rhinitis Upper respiratory infection Type 1 diabetes Family History Other Unknown family medical history Social History Smoking Status: Unknown if ever smoked alcohol intake: current alcohol intake frequency: holidays/special occasions only substance use type: denies use current occupational status: employed Travel in the last 8 weeks: None ROS Obtained: Yes All systems reviewed & no additional complaints except as documented Constitutional Constitutional: Reports system reviewed and no additional complaints, except as documented, Denies chills and Denies fever(s) Eyes Eyes: Denies eye discharge ENT Ears, Nose, Mouth, and Throat: Denies dysphagia, Denies sore throat and Denies throat swelling Cardiovascular Cardiovascular: Denies chest pain and Denies dyspnea Respiratory Respiratory: Denies chest congestion, Denies cough and Denies dyspnea Gastrointestinal Gastrointestingal: Denies abdominal pain, constipation, diarrhea, dysphagia, nausea or vomiting Genitourinary Female Genitourinary: Reports as per HPI, Reports dysuria, Reports sexual dysfunction, Reports urinary frequency, Denies urinary incontinence and Reports urinary hesitancy Musculoskeletal Musculoskeletal: Denies arthralgias and Reports back pain Integumentary/Breasts Skin/Breast: Denies rash Neurologic Neurologic: Denies paresthesias Allergic/Immunologic Allergic/Immunologic: Denies throat swelling Physical Exam General General appearance: alert and in no apparent distress Head Head exam: atraumatic, normocephalic and normal inspection Eye Eye exam: Present normal appearance, PERRL and EOMI ENT ENT exam: Present normal exam, normal oropharynx, mucous membranes moist, TM's normal bilaterally and normal external ear exam Neck Neck exam: Present normal inspection, full ROM and trachea midline; Absent meningismus or lymphadenopathy Chest Chest inspection: Present normal inspection and symmetric chest wall rise; Absent tenderness Respiratory Respiratory exam: Present normal lung sounds bilaterally; Absent respiratory distress Cardiovascular Cardiovascular exam: Present regular rate and normal rhythm; Absent JVD Abdominal Exam Abdominal exam: Present soft and normal bowel sounds; Absent distention, tenderness or guarding Extremities Exam Extremities exam: Present normal inspection, full ROM and normal capillary refill; Absent calf tenderness Back Exam Back exam: Present normal inspection; Absent tenderness Neurological Exam Neurological exam: Present alert and oriented X3 Psychiatric Psychiatric exam: Present normal affect and normal mood Skin Skin exam: Present warm, dry, intact and normal color Lymphatic Lymphatic Findings: no adenopathy Medical Decision Making Medical Records Medical records reviewed: No I reviewed the patient's medical records. Screening: Per USPSTF and CDC recommendations, given the prevalence of disease in our region, it is our hospital?s policy to screen for HIV and viral Hepatitis for all patients aged 18 and over and those with ongoing risk factors. Narendra Inquiry Pt receiving controlled substance: No Vital Signs: 01/10/24 13:07 Temperature 97.9 F Temperature Source Oral Pulse Rate [Radial] 68 Respiratory Rate 18 Blood Pressure [Right Arm] 116/78 Blood Pressure Mean [Right Arm] 90 Blood Pressure Source [Right Arm] Automatic Cuff Blood Pressure Position [Right Arm] Sitting 02 Sat by Pulse Oximetry 100 Oxygen Delivery Method Room Air Lab Data Lab Results 01/10/24 13:09: Urine Color Yellow, Urine Appearance Clear, Urine pH 6.0, Ur Specific Moran 1.020, Urine Protein Negative, Urine Glucose (UA) 100, Urine Ketones Negative, Urine Blood 1+, Urine Nitrate Negative, Urine Bilirubin Negative, Urine Urobilinogen 0.2, Ur Leukocyte Esterase 1+ A
[2024-01-10 13:31] VITALS: BP 116/78; PULSE 68; RESP 18; TEMP 36.6; O2SAT 100
== END 2024-01-10 13:32 | disposition home or self-care (01) ==
PROVIDERS: Emergency Provider Nurse Practitioner Family; PCP Nurse Practitioner Family
DX: B37.49 Other urogenital candidiasis (principal)
CPT/HCPCS: 81003; 87086; 99212; 99214; G0463

== ENCOUNTER 2024-01-22 10:45 | Outpatient (CLI) | payer OTHER, SELFPAY ==
[2024-01-22 16:58] LABS: Microscopic, Urine URINE MICROSCOPIC (MICROSCOPIC)
[2024-01-22 17:19] LABS: Appearance,Urine CLEAR (Clear); Bilirubin,Urine Negative (Negative); Blood, Urine Negative (Negative); Color,Urine YELLOW (Yellow); Glucose,Urine (UA) Negative (Negative); Ketones,Urine Negative (Negative); Leukocyte Esterase,Urine TRACE (Negative); Nitrate,Urine Negative (Negative); PH,Urine 5.5 (5.0-8.5); Protein,Urine Negative (Negative); Urobilinogen,Urine 0.2 EU/dl (0.2)
[2024-01-22 17:30] LABS: Bacteria,Urine 2+ /lpf; RBC,Urine Occasional #/hpf (0-3); Squamous Epithelial Cell,Urine 20-50 #/hpf (0-5); WBC,Urine 20-50 #/hpf (0-3)
== END 2024-01-22 23:59 | disposition home or self-care (01) ==
LOC: LAB.DROPOF 01-25 10:46
PROVIDERS: PCP Nurse Practitioner Family; Visit Provider Nurse Practitioner Family
DX: N39.0 Urinary tract infection, site not specified (principal)
CPT/HCPCS: 81001; 87086

== ENCOUNTER 2024-02-19 17:02 | Emergency (ER) | payer OTHER, SELFPAY ==
[2024-02-19 17:40] VITALS: BP 119/66; PULSE 66; RESP 19; TEMP 36.8; O2SAT 98; BMI 20.5
--- NOTE | 2024-02-19 17:56 | ED_ITS ---
Discharge Plan Disposition Patient Disposition: Home, Self-Care Condition: Good Prescriptions Prescriptions: New azithromycin [Zithromax] 250 mg tablet 250 mg PO UD DOSE PK Qty: 6 0RF Rx Instructions: Take two (2) tablets today, then one (1) tablet days #2 thru #5 [id number]-[id number]-QM [Bromfed DM] 2-30-10 mg/5 mL Syrup 5 ml PO Q6H PRN (Reason: Cough) Qty: 240 0RF No Action Baqsimi 3 mg/actuation spray,non-aerosol 3 mg intranasal ONCE PRN (Reason: DIABETES) insulin aspart U-100 [Novolog U-100 Insulin aspart] 100 unit/mL solution See Rx Instructions .ROUTE .COMPLEX Rx Instructions: sliding scale norgestimate-ethinyl estradiol [Ortho Tri-Cyclen (28)] 0.18/0.215/0.25 mg-35 mcg (28) tablet 1 tab PO DAILY Qty: 84 3RF meloxicam 15 mg tablet 15 mg PO DAILY Qty: 30 3RF insulin glargine [Lantus Solostar U-100 Insulin] 100 unit/mL (3 mL) insulin pen See Rx Instructions .ROUTE .COMPLEX Rx Instructions: see rx instruction sertraline 100 mg tablet 100 mg PO DAILY 30 Days Qty: 30 5RF Referrals Follow up/Referrals: Yadi Martino APRN [Primary Care Provider] - See instructions Activity Restrictions/Add. Instructions Additional Instructions/Restrictions: Drink plenty of fluids. Take tylenol or ibuprofen for pain or fever. Take the medications as directed. Follow up with your regular doctor. GO TO THE ER FOR ANY WORSENING SYMPTOMS Clinical Impressions Clinical Impression: Pharyngitis, Otitis media Stand Alone Forms Stand Alone Forms: Work/School Release Instructions Patient Instructions: Middle Ear Infection, DI for Pharyngitis/Tonsillopharyngitis -- Adult Print Language Print Language: Faroese Discharge ED Provider: Joe Heredia [facility] [place] General Stated complaint: sore throat Mode of Arrival: Ambulatory Source of Information: Patient Limitations: No Limitations Time Seen by Provider: 02/19/24 17:56 Description of Symptoms (Recalled from Triage Doc. by RN): PATIENT C/O SORE THROAT AND BILATERAL EAR PAIN X 2 DAYS HEENT Symptoms (Recalled from RN notes): Yes Resp Symptoms (Recalled from RN notes): No Skin Symptoms (Recalled from RN notes): No MS Symptoms (Recalled from RN notes): No Functional Status (Recalled from RN notes): WNL Related Data Home Medications ?Medication ?Instructions ?Recorded ?Confirmed glucagon 3 mg/actuation nasal 3 mg intranasal ONCE PRN DIABETES 03/25/23 11/19/23 spray (Baqsimi) insulin aspart U-100 100 unit/mL See Rx Instructions .Route 07/01/23 02/19/24 subcutaneous solution (Novolog .COMPLEX Diabetes U-100 Insulin aspart) insulin glargine 100 unit/mL (3 See Rx Instructions .Route .COMPLEX 08/31/23 11/19/23 mL) subcutaneous pen (Lantus Solostar U-100 Insulin) Previous Rx's ?Medication ?Instructions ?Recorded norgestimate-ethinyl estradiol 1 tab PO DAILY #84 tabs 07/01/23 0.18 mg/0.215mg/0.25mg-35 mcg(28)tablet (Ortho Tri-Cyclen (28)) meloxicam 15 mg tablet 15 mg PO DAILY #30 tabs 07/15/23 sertraline 100 mg tablet 100 mg PO DAILY 30 days #30 tabs 11/04/23 azithromycin 250 mg tablet 250 mg PO UD DOSE PK #6 tabs 02/19/24 (Zithromax) ehmoevilbjyntxz-pkncjuoshdgevwl-QT 5 ml PO Q6H PRN Cough #240 mL 02/19/24 2 mg-30 mg-10 mg/5 mL oral syrup (Bromfed DM) Allergies Allergy/AdvReac Type Severity Reaction Status Date / Time No Known Allergies Allergy Verified 11/19/23 10:31 Worker's Comp Is this a Worker's Comp case?: No [facility] Disclaimer: The information contained in this section may have been updated after the patient was seen, as this information can be updated by other users. Medical History (Updated 02/19/24 @ 18:25 by Joe Heredia APRN) Pharyngitis Ankle sprain Right otitis media Viral respiratory illness Tenosynovitis of hand Pain of right thumb Dysuria Nausea & vomiting Hypomagnesemia Abdominal cramping Gastroenteritis Acute cystitis Leukocytosis Nausea Jaw pain Allergic rhinitis Upper respiratory infection Type 1 diabetes Family History Other Unknown family medical history Social History Smoking Status: Unknown if ever smoked alcohol intake: current alcohol intake frequency: holidays/special occasions only substance use type: denies use current occupational status: employed Travel in the last 8 weeks: None ROS Obtained: Yes All systems reviewed & no additional complaints except as documented Constitutional Constitutional: Reports chills and Reports fever(s) Eyes Eyes: Denies eye discharge ENT Ears, Nose, Mouth, and Throat: Reports as per HPI Cardiovascular Cardiovascular: Denies chest pain Respiratory Respiratory: Denies chest congestion and Reports cough Gastrointestinal Gastrointestingal: Reports nausea; Denies abdominal pain, constipation, cramping, diarrhea or vomiting Musculoskeletal Musculoskeletal: Denies arthralgias Integumentary/Breasts Skin/Breast: Denies rash Neurologic Neurologic: Denies paresthesias Physical Exam General General appearance: alert and in no apparent distress Head Head exam: atraumatic, normocephalic and normal inspection Eye Eye exam: Present normal appearance, PERRL and EOMI ENT ENT exam: Present mucous membranes moist and normal external ear exam Expanded ENT Exam TM/Canal exam: Bilateral TM: erythema and bulging Nose exam: Absent sinus tenderness Mouth exam: Present normal external inspection; Absent drooling Teeth exam: Present normal inspection Throat exam: Present tonsillar erythema, tonsillomegaly and tonsillar exudate Neck Neck exam: Present normal inspection, full ROM and trachea midline; Absent tenderness, meningismus or lymphadenopathy Chest Chest inspection: Present normal inspection and symmetric chest wall rise; Absent tenderness Respiratory Respiratory exam: Present normal lung sounds bilaterally; Absent respiratory distress, wheezes, stridor or accessory muscle use Cardiovascular Cardiovascular exam: Present regular rate and normal rhythm; Absent systolic murmur or diastolic murmur Abdominal Exam Abdominal exam: Present soft and normal bowel sounds; Absent distention, tenderness, guarding, rebound or rigidity Extremities Exam Extremities exam: Present normal inspection and normal capillary refill; Absent calf tenderness Back Exam Back exam: Present normal inspection and full ROM; Absent tenderness, CVA tenderness (R) or CVA tenderness (L) Neurological Exam Neurological exam: Present alert, oriented X3 and CN II-XII intact Psychiatric Psychiatric exam: Present normal affect and normal mood Skin Skin exam: Present warm, dry, intact and normal color Medical Decision Making Medical Records Medical records reviewed: No I reviewed the patient's medical records. Screening: Per USPSTF and CDC recommendations, given the prevalence of disease in our region, it is our hospital?s policy to screen for HIV and viral Hepatitis for all patients aged 18 and over and those with ongoing risk factors. Narendra Inquiry Pt receiving controlled substance: No Vital Signs: 02/19/24 17:40 Temperature 98.2 F Temperature Source Oral Pulse Rate [Left Brachial] 66 Respiratory Rate 19 Blood Pressure [Left Arm] 119/66 Blood Pressure Mean [Left Arm] 83 Blood Pressure Source [Left Arm] Automatic Cuff Blood Pressure Position [Left Arm] Sitting 02 Sat by Pulse Oximetry 98 Oxygen Delivery Method Room Air Lab Data Lab results reviewed: Yes I reviewed the patient's lab results.
[2024-02-19 18:00] LABS: UTC Strep Screen (Rapid) Negative (Negative)
[2024-02-19 18:26] VITALS: BP 119/66; PULSE 66; RESP 19; TEMP 36.8; O2SAT 98
== END 2024-02-19 18:28 | disposition home or self-care (01) ==
PROVIDERS: Emergency Provider Nurse Practitioner Family; PCP Nurse Practitioner Family
DX: J02.9 Acute pharyngitis, unspecified (principal); H66.90 Otitis media, unspecified, unspecified ear; R50.9 Fever, unspecified; R05.9 Cough, unspecified; R11.0 Nausea
CPT/HCPCS: 87880; 99212; G0381

== ENCOUNTER 2024-05-27 13:44 | Outpatient (CLI) | payer OTHER, SELFPAY ==
[2024-05-27 16:31] LABS: Microscopic, Urine URINE MICROSCOPIC (MICROSCOPIC)
[2024-05-27 16:41] LABS: Appearance,Urine CLEAR (Clear); Bilirubin,Urine Negative (Negative); Blood, Urine Negative (Negative); Color,Urine YELLOW (Yellow); Glucose,Urine (UA) Negative (Negative); Ketones,Urine Negative (Negative); Leukocyte Esterase,Urine TRACE (Negative); Nitrate,Urine Negative (Negative); Protein,Urine Negative (Negative); Specific Gravity, Urine <= 1.005 (1.005-1.030); Urobilinogen,Urine 0.2 EU/dl (0.2)
[2024-05-27 17:29] LABS: Bacteria,Urine 4+ /lpf; Squamous Epithelial Cell,Urine 20-50 #/hpf (0-5); WBC,Urine 20-50 #/hpf (0-3)
== END 2024-05-27 23:59 | disposition home or self-care (01) ==
LOC: LAB.DROPOF 05-28 09:56
PROVIDERS: PCP Nurse Practitioner Family; Visit Provider Nurse Practitioner Family
DX: N39.0 Urinary tract infection, site not specified (principal)
CPT/HCPCS: 81001; 87086

== ENCOUNTER 2024-12-21 13:46 | Outpatient (CLI) | payer OTHER, SELFPAY ==
--- OUTSIDE RECORDS SUMMARY | 2024-11-07 15:00 | XMS_ITS | Encounter Summary ---
Author Organization [facility] Address [address] [place] [address] Care Team Providers Care Inspector Toys Name Role Phone MartinoYadi mcfadden DEIDRE Primary Care Provider [phone] Reason for Visit * Reason Comments Diabetes Mellitus Pump assessment * Consultation (Routine) - Closed Specialty Diagnoses / Procedures Referred By Brennen aviles Referred To Contact Endocrinology Diagnoses Type 1 diabetes mellitus without complication Milly Ramos PA [address] [address] Phone: tel: fax: [facility] [address] [place] [address] Phone: tel: fax: Referral ID Status Reason Start Date Expiration Date Visits Re quested Visits Authorized [id number] Closed 09/16/2024 03/18/2026 1 1 Encounter Details Date Type Department Care Team (Late st Contact Info) Description 11/07/2024 3:00 PM EDT Clinical Support [facility] [address] [place] [address] Katherine Rhodes, RD [address] [address] Type 1 diabetes mellitus without complication (Primary Dx) Social History Tobacco Use Types Packs/Day Years Used Date Smoking Tobacco: Never Smokeless Tobacco: Never Alcohol Use Standard Drinks/Week Comments Never 0 (1 standard drink = 0.6 oz pur e alcohol) Comments Unknown Sex and Gender Information Value Date Recorded Sex Assigned at Not on file Legal Sex Female 7:06 PM EDT Gender Identity Not on file Sexual Orientation Not on file documented as of this encounter Miscellaneous Notes * Progress Notes - ChrisjasvirRodriguezantony Pineda, RD - 11/07/2024 3:00 PM EDT Insulin Pump Therapy Initial Visit Assessment Date of Diabetes Diagnosis (Month/Year): Diagnosed 13 years ago T1DM. Current Weight: 129 pounds on 09/16/2024 Current Insulin Regimen 1. Current Insulin Names: Wearing Tandem pump (reports has worn Medtronic pump in the past). Averaging around 45 units a day. a) Meal Times Doses (I:C and Correction Doses): b) Are mealtime doses give pre or post meal? After, patient trying to do better with entering carbsat start of meal. c) When do you give corrections doses? d) What is the average amount of insulin you take at each meal? e) When do you take your long acting insulin? Current dose: f) Where do currently inject your insulin doses? 2. Do you ever miss your prescribed insulin dose? Carbohydrate Counting 1. Do you feel comfortable counting carbohydrates? Yes a) Peds pt only-Who else counts carbohydrates for your child? b) Peds pt only-Does your child assist with carbohydrate counting? 2. How many carbohydrates do you typically eat per meal and total per day? Do you use any tool, device, or nils to assist with carbohydrate counting? Glucose Monitoring 1. Do you wear a CGM? Does your readings go to a cell phone or a wheel roller? Dexcom G7 2. How often do you use a BG meter? When doesn't feel CGM is accurate or not wearing sensors 3. What are your current target BG goals? 80-180mg/dL Problem Solving/Reducing Risk 1. Do you test for ketones? No When do you test for ketones? Reports she does haves ketone strips, reviewed when to be checking a) How do you treat trace or small ketones? b) How do you treat moderate or large ketones? 2. What is your sick day routine? Checks blood glucose more often 3. Have you ever been diagnosed with DKA? If so when? Were you hospitalized? Any other diabetes related hospital admissions. Only Dx with DKA when first diagnosed with diabetes 4. How do you treat your hypoglycemia? Do you have something with you today to treat a low blood glucose level? Whatever is handy- gummies, fruit snacks treats when 80mg/dL and dropping. Reports she feels her lows. 5. What type of emergency treatment do you have for severe hypoglycemia? When would you use the emergency treatment device? Baqsimi Pump Basics Topic Covered Basics of Insulin Pump Therapy Theory Advantages/Disadvantages of pump use Infusion Sets/Site Selection Reservoirs/Cartridges/Pods Verbalizes Understanding Current Insulin Regimen Topic Covered Actions of Insulin Used in Pump Basal vs. Bolus Insulin Rapid (Fast) Acting Insulin only in the pump for basal and bolus Long acting insulin used for back-up only Verbalizes Understanding Carbohydrate Counting Topic Covered Carbohydrate Counting Estimate Carbs Verbalizes Understanding Properly uses I:C ratio and Correction dose Verbalizes Understanding Glucose Monitoring Topic Covered Glucose Monitoring Importance of BG monitoring and testing times Verbalizes Understanding Problem Solving/Reducing Risk Topic Covered Hypoglycemia Hypoglycemia Prevention/Rule of 15/Treatment Measures Verbalizes Understanding Hyperglycemia Hyperglycemia Prevention/Rule of 250/Treatment Measures Verbalizes Understanding DKA DKA and DKA Prevention Verbalizes Understanding She declined handout on DKA at this time. Additional Topics Covered: Potential Cost of Pump and Supplies and Insulin Pump Comparison Handout given to patient/patient's family/guardian Additional Comments/Narrative Note: Patient present with her mom. No concerns at this time. Patient wearing Tandem pump with clifton steel infusion set. Interested in Tandem Mobi. Reports she checked and her phone has Mobi nils available. She currently is wearing Clifton steel infusion set and is interested in auto soft XC 5 inch tubing with Mobi. Provided her with sample of auto soft XC 23 inch 6mm to try out to see if she likes this infusion set. Demonstrated how to use and also encouraged that she can watch youtube video Tandem auto soft XCvideo for insertion reminder. Discussed cannula fill is 0.3u with this sample infusion set and demonstrated on tandem tslim simulator where she will enter this in if she was to try out this sample infusion set. She was also interested in Omnipod 5 but reports leaning more towards Tandem Mobi at this time. Pump and/or Sensor Initiation Paperwork Completed Today: No, patient needs to check with insurance. Provided Endo clinic contact information. She will contact Endo clinic once she decides on pump. Needs to check coverage as her insurance is changing. If she decides on Tandem Mobi she would like to make sure she is called with pricing before pump isshipped to her. Type of Insulin Pump Preferred by patient:: Tandem Mobi and Dexcom (currently wearing Dexcom G7). Reports she has had issues and not finding readings as accurate with Dexcom G7 and she is consideringswitching to Dexcom G6. Her insurance is changing at the end of the week and needs to check cost onpump coverage/CGM. Patient will contact clinic once she makes decision. documented in this encounter Plan of Treatment Upcoming Encounters Date Type Department Care Team (Late st Contact Info) Description 03/27/2025 3:20 PM EST Office Visit [facility] [address] [place] [id number] Milly Ramos PA [address] [place] [id number] documented as of this encounter Visit Diagnoses Diagnosis Type 1 diabetes mellitus without complication- Primary Type I (juvenile type) diabetes mellitus without mention of complication, not stated as uncontrolled documented in this encounter Additional Health Concerns Assessment Noted Time A Body Mass Index follow-up plan has been documented for the patient 11/08/2024 8:54 AM EDT documented as of this encounter Care Teams Inspector Toys Relationship Specialty Start Date End Date Yadi Martino APRN [address] [place] [address] PCP - General 02/17/24 documented as of this encounter
--- OUTSIDE RECORDS SUMMARY | 2024-12-14 14:40 | XMS_ITS | Encounter Summary ---
Author Organization [facility] Address [address] [place] [address] Care Team Providers Care Horse Breeder Name Role Phone Yadi Martino DEIDRE Primary Care Provider +1- [phone] Reason for Referral * Consultation (Routine) - Authorized Specialty Diagnoses / Procedures Referred By Brennen aviles Referred To Contact Diagnoses Type 1 diabetes mellitus without complication Milly Ramos PA [address] [address] Phone: tel: fax: Referral ID Status Reason Start Date Expiration Date V isits Requested Visits Authorized [id number] Authorized 12/14/2024 06/15/2026 1 1 Reason for Visit * Consultation (Routine) - Closed Specialty Diagnoses / Procedures Referred By Brennen aviles Referred To Contact Endocrinology Diagnoses Type 1 diabetes mellitus without complication Milly Ramos PA [address] [address] Phone: tel: fax: Referral ID Status Reason Start Date Expiration Date Visits Re quested Visits Authorized [id number] Closed 09/16/2024 03/18/2026 1 1 Encounter Details Date Type Department Care Team (Late st Contact Info) Description 12/14/2024 2:40 PM EDT Office Visit [facility] [address] [place] [address] Milly Ramos PA [address] [place] [phone] Type 1 diabetes mellitus without complication (Primary Dx) Social History Tobacco Use Types Packs/Day Years Used Date Smoking Tobacco: Never Smokeless Tobacco: Never Tobacco Cessation:Counseling Given: Not Answered Alcohol Use Standard Drinks/Week Comments Never 0 (1 standard drink = 0.6 oz pur e alcohol) Comments No Sex and Gender Information Value Date Recorded Sex Assigned at Not on file Legal Sex Female 7:06 PM EDT Gender Identity Not on file Sexual Orientation Not on file documented as of this encounter Last Filed Vital Signs Vital Sign Reading Time Taken Comments Blood Pressure 121/77 12/14/2024 2:40 PM EDT Pulse 91 12/14/2024 2:40 PM EDT Temperature - - Respiratory Rate - - Oxygen Saturation - - Inhaled Oxygen Concentration - - Weight 58.9 kg (129 lb 13.6 oz) 12/14/2024 2:40 PM EDT Height 167.6 cm (5' 6 ) 12/14/2024 2:40 PM EDT Body Mass Index 20.96 12/14/2024 2:40 PM EDT documented in this encounter Miscellaneous Notes * Patient Instructions - Milly Ramos PA - 12/14/2024 2:40 PM EDT -Please call the diabetes education team with any questions or concerns [phone]. Lab Results Component Value Date HGBA1C 6.0 12/14/2024 * Progress Notes - Milly Ramos PA - 12/14/2024 2:40 PM EDT Subjective Gina Patino is a 19 y.o. female who presents for an follow up evaluation of Diabetes Mellitis Type1. Patient was diagnosed age 6. Current symptoms/problems include none. Diabetes HgA1C: Lab Results Component Value Date HGBA1C 6.0 12/14/2024 HGBA1C 6.6 09/16/2024 HGBA1C 6.1 05/19/2024 -at past office visit we discussed other pump options as patient's tandem was now out of warranty. the patient attended pump assessment with preference to tandem OB but deferred ordering due to change of insurance within the coming week. She admits has not discussed coverage options with her insurance as only recently received her insurance cards. Continues planning her wedding which will be in 2weeks. - Completed wisdom tooth extraction with recommendations at last office visit without issue. Current treatment includes insulin pump Insulin pump: Tandem Downloaded and reviewed: 12/01-12/14 TDD: 38.48 units/day Basal 53%; Bolus 47% CGM Statistics: Average BG 146; GMI 6.8%; In Target 76%; Low 1.7% Interpretation: frequent hypoglycemia or near hypoglycemia requiring pump suspensions following self or auto corrections; otherwise within normal limits. Known diabetic complications: none Compliance at present is estimated to be good. Cardiovascular risk factors: diabetes mellitus Is she on FERMIN inhibitor or angiotensin II receptor ryan? Not Indicated Is she on a StatinNot Indicated Current diet: {diet habits:on average, 2-3 meals per day previously skipped breakfast but has started having protein shakes to try to alleviate hypoglycemia. First true meal is often lunch around 1-1:30p. Current exercise: {exercise types:walking Works at pharmacy as broadcast technician FT Date of Last Eye Exam: 10/2023 Date of Last Foot Exam: due What pump type do you have?: Tandem T Slim What type of sensor do you have?: Dexcom G7 When was your last flu shot?: fall 2023 When did you have labs last?: 10/2023 The following portions of the chart were reviewed this encounter and updated as appropriate: Tobacco Allergies Meds Problems Med Hx Surg Hx Fam Hx Review of Systems Constitutional: Negative. HENT: Negative. Eyes: Negative. Respiratory: Negative. Cardiovascular: Negative. Gastrointestinal: Negative. Endocrine: See HPI Genitourinary: Negative. Notes recurring UTIs, states has 1 at least once a month requiring antibiotics. currently asymptomatic. Last office visit advised workup to assess cause as blood glucose mostly well controlled and not sole factor. Musculoskeletal: Negative. Skin: Negative. Neurological: Negative. Psychiatric/Behavioral: Negative. Objective Physical Exam Vitals reviewed. Constitutional: General: She is not in acute distress. Appearance: Normal appearance. She is not ill-appearing. HENT: Head: Normocephalic. Nose: Nose normal. Cardiovascular: Rate and Rhythm: Normal rate. Pulmonary: Effort: Pulmonary effort is normal. Musculoskeletal: General: Normal range of motion. Cervical back: Normal range of motion. Skin: General: Skin is warm and dry. Neurological: Mental Status: She is alert and oriented to person, place, and time. Psychiatric: Mood and Affect: Mood normal. Behavior: Behavior normal. Thought Content: Thought content normal. Judgment: Judgment normal. Lab Review POCT Hemoglobin A1C Date Value 12/14/2024 6.0 % 09/16/2024 6.6 % 05/19/2024 6.1 % 05/07/2021 7.8 % (A) 12/10/2020 6.6 % 09/11/2020 6.8 Assessment/Plan Diabetes Mellitis Type 1, is controlled. Rx changes: assisted patient to reduce CF 10% to 44 from 40 due to patterns noted. have discussed ability for 2nd pump profile for menstrual cycles if patient finds that normal settings continue to be too intensive, will continue to monitor. Continue intensive insulin delivery via automated insulin pump therapy. Patient wishes to proceed with MOBI, requests to defer starting orders until after her wedding, patient will contact clinic when ready to order. She is aware will receive trust start/maintenance cost once contacted by tandem. Current warranty was up 07/26/24, she is aware of plan if pump failed. Continue using CGM to test BG 3+ times daily to adjust insulin doses for use with hybrid closed loop insulin pump system. Through DME. Backup [employer] supplies sent for patient today in event of CGM failure Ketone strips up to date Baqsimi up to date Routine labs today, 4 hours fasting. Follow up 3 months The following Diabetes education was reviewed: []SBGM to evaluate dose needs [x]Insulin coverage with carbohydrate intake [x]Site rotation [x] Exercise impact on glucose levels []Driving safety related to diabetes []Sick day management []Ketone testing []Over treatment of hypoglycemia [x] Hypoglycemia management [x]Call-in line use [x]Insulin pump pros and cons []Sensor home use []Pump class offerings []Neela phenomena []Somogyi effect [] Alcohol related to diabetes []Benefits of written records [x]Pre-meal Bolusing []Daily foot care [] Healthy diet and regular exercise [x]Long-term complications related to poor diabetes management [] Injection timing related to changes in activity/exercise -Time spent with patient does not include time spent reviewing CGM. I personally spent a total of 30 minutes on this encounter. This time includes face to face with patient, counseling and discussion and/or coordination of care. Electronically signed by: ANASTACIO Anderson [facility] [address] [place] [address]. [address] [place] [address]. [address] PHONE [phone] FAX: [phone] documented in this encounter Plan of Treatment Upcoming Encounters Date Type Department Care Team (Late st Contact Info) Description 03/27/2025 3:20 PM EST Office Visit [facility] [address] [place] [address] [place] [address] [place] [address] [place] [phone] Scheduled Orders Name Type Priority Associated Diagnoses Orde r Schedule Comprehensive Metabolic Panel, Plasma Lab Routine Type 1 diabetes mellitus without complication Expected: 12/14/2024 (Approximate), Expires: 12/14/2025 Lipid Profile, Plasma Lab Routine Type 1 diabetes mellitus without complication Expected: 12/14/2024 (Approximate), Expires: 12/14/2025 Scheduled Referrals Name Type Priority Associated Diagnoses Orde r Schedule Follow Up [facility] Outpatient Referral Routine Type 1 diabetes mellitus without complication Expected: 03/16/2025, Expires: 06/17/2026 documented as of this encounter Procedures Procedure Name Priority Date/Time Associated Diagnosis Comments TSH REFLEX FT4 Routine 12/14/2024 3:35 PM EDT Type 1 diabetes mellitus without complication ALBUMIN, URINE, RANDOM Routine 12/14/2024 3:35 PM EDT Type 1 diabetes mellitus without complication LIPID PROFILE, PLASMA Routine 12/14/2024 3:35 PM EDT Type 1 diabetes mellitus without complication COMPREHENSIVE METABOLIC PANEL, PLASMA Routine 12/14/2024 3:35 PM EDT Type 1 diabetes mellitus without complication POCT GLYCOSYLATED HEMOGLOBIN (HGB A1C) Routine 12/14/2024 3:10 PM EDT Type 1 diabetes mellitus without complication documented in this encounter Results * Lipid panel (12/14/2024 3:35 PM EDT) Cholesterol, Plasma 192 <200 mg/dL 12/15/2024 4:00 PM EDT [facility] Comment: Cholesterol Reference Range (age >17 years): Desirable <200 mg/dL Borderline 200 to 239 mg/dL Undesirable >239 mg/dL HDL 118 >=50 mg/dL 12/15/2024 4:00 PM EDT [facility] Comment: HDL Cholesterol Reference Ranges (age >17 years): Female, acceptable > or = 50 mg/dL Male, acceptable > or = 40 mg/dL Triglycerides, Plasma 64 <150 mg/dL 12/15/2024 4:00 PM EDT [facility] Comment: Triglyceride Reference Range (age >17 years): Desirable: <150 mg/dL Borderline high: 150 to 199 mg/dL High: 200 to 499 mg/dL Very high: >499 mg/dL Increased risk of pancreatitis: >1000 mg/dL Cholesterol/HDL Ratio 2 12/15/2024 4:00 PM EDT [facility] LDL, Calculated 62 <100 mg/dL 4:00 PM EDT [facility] Comment: LDL Cholesterol Reference Range (age >17 years): Optimal: <100 mg/dL Near or above optimal: 100 - 129 mg/dL Borderline high: 130 - 159 mg/dL High: 160 - 189 mg/dL Very high: >189 mg/dL LDL Cholesterol Reference Range (age <18 years): Desirable: <110 mg/dL Borderline: 110 - 129 mg/dL Undesirable: >130 mg/dL LDL Cholesterol is calculated using the Rodgers/NIH equation. Fasting greater than or equal to 12 hours? Unknown 12/15/2024 4:00 PM EDT [facility] Blood Venous blood specimen / Unknown Venipuncture / Unknown 12/14/2024 3:35 PM EDT 12/14/2024 4:42 PM EDT us Milly [facility] BLOOD ORDERABLES Final Result [facility] [address] [place] [address] * (ABNORMAL) Comprehensive metabolic panel (12/14/2024 3:35 PM EDT) Glucose, Plasma 127(H) 74 - 99 mg/dL 12/15/2024 2:58 PM EDT [facility] BUN, Plasma 13 7 - 21 mg/dL 12/15/2024 2:58 PM EDT [facility] Creatinine, Plasma 0.81 0.60 - 1.10 mg/dL 12/15/2024 2:58 PM EDT [facility] BUN/Creatinine Ratio 16 12/15/2024 2:58 PM EDT [facility] Sodium, Plasma 144 136 - 145 mmol/L 12/15/2024 2:58 PM EDT [facility] Potassium, Plasma 4.9 3.6 - 4.9 mmol/L 12/15/2024 2:58 PM EDT [facility] Chloride, Plasma 105 97 - 107 mmol/L 12/15/2024 2:58 PM EDT [facility] CO2, Plasma 20(L) 22 - 29 mmol/L 12/15/2024 2:58 PM EDT [facility] Anion Gap 19(H) 6 - 16 mmol/L 12/15/2024 2:58 PM EDT [facility] Total Calcium, Plasma 9.7 8.9 - 10.2 mg/dL 12/15/2024 2:58 PM EDT [facility] Total Protein 7.6 6.3 - 7.9 g/dL 12/15/2024 2:58 PM EDT [facility] Albumin, Plasma 4.9 3.5 - 5.2 g/dL 12/15/2024 2:58 PM EDT [facility] AST, Plasma 21 10 - 35 U/L 12/15/2024 2:58 PM EDT [facility] ALT, Plasma 10 10 - 35 U/L 12/15/2024 2:58 PM EDT [facility] Alkaline Phosphatase, Plasma 94 35 - 104 U/L 12/15/2024 2:58 PM EDT [facility] Total Bilirubin, Plasma 0.5 0.2 - 1.1 mg/dL 12/15/2024 2:58 PM EDT [facility] eGFRcr 106.1 mL/min/1.7 3m*2 12/15/2024 2:58 PM EDT [facility] Comment:Reported eGFRcr in m L/min/1.73m2 is based the CKD-EPI 2020 equation that does not use a race coefficient. Blood Venous blood specimen / Unknown Venipuncture / Unknown 12/14/2024 3:35 PM EDT 12/14/2024 4:42 PM EDT [facility] BLOOD ORDERABLES Final Result [facility] [address] [place] [address] * TSH Reflex FT4 (12/14/2024 3:35 PM EDT) Thyroid Stimulating Hormone, Plasma 1.08 0.40 - 4.20 uIU/mL 12/14/2024 6:57 PM EDT [facility] Blood Venous blood specimen / Unknown Venipuncture / Unknown 12/14/2024 3:35 PM EDT 12/14/2024 4:42 PM EDT Narrative [facility] - 12/14/2024 6:57 PM EDT Trimester Specific Ranges TSH ( IU/mL) 1st Trimester 0.1 - 3.0 2nd Trimester 0.19 - 4.06 3rd Trimester 0.3 - 3.7 us [facility] BLOOD ORDERABLES Final Result Performing Organization Address City/[facility]/ZIP Co de Phone Number [facility] [address] [place] [address] * Albumin-creatinine ratio, urine, random (12/14/2024 3:35 PM EDT) [facility] Microalbumin, Urine <1.2 <1.9 mg/dL 12/14/2024 7:10 PM EDT [facility] Creatinine, Urine 15 mg/dL 12/14/2024 7:10 PM EDT [facility] Albumin/Creatin ine Ratio 12/14/2024 7:10 PM EDT [facility] Comment:Unable to calculate, at least one value is above or below the detection limit. Urine Urine specimen obtained by clean catch procedure / Unknown Non-blood Collection / Unknown 12/14/2024 3:35 PM EDT 12/14/2024 4:42 PM EDT [facility] URINE ORDERABLES Final Result Performing Organization Address [facility] Co de Phone Number [facility] [address] [place] [address] * POCT glycosylated hemoglobin (Hb A1C) (12/14/2024 3:10 PM EDT) [facility] POCT Hemoglobin A1C 6.0 <5.7% Non-Diabet ic % [facility] Kit Lot Number [id number] [facility] Kit Expiration Date 09/2026 [facility] Blood Venous blood specimen / Unknown 12/14/2024 3:10 PM EDT Milly [facility] POINT OF CARE TEST EN TER/EDIT ORDERABLES Final Result Performing Organization Address City/[facility]/ZIP Co de Phone Number [facility] [address] [place] [address] documented in this encounter Visit Diagnoses Diagnosis Type 1 diabetes mellitus without complication- Primary Type I (juvenile type) diabetes mellitus without mention of complication, not stated as uncontrolled documented in this encounter Additional Health Concerns Assessment Noted Time A Body Mass Index follow-up plan has been documented for the patient 12/14/2024 3:36 PM EDT documented as of this encounter Care Teams Horse Breeder Relationship Specialty Start Date End Date Yadi Martino APRN [address] [place] [address] PCP - General 02/17/24 documented as of this encounter
--- OUTSIDE RECORDS SUMMARY | 2024-12-23 09:20 | XMS_ITS | Encounter Summary ---
Author Organization [facility] Address [address] [place] [address] Care Team Providers Care Veterinary Toxicologist Name Role Phone Yadi Martino APRN Primary Care Provider +1- [phone] Encounter Details Date Type Department Care Team (Latest Contact Info) Description 11/07/2024 Travel Social History Tobacco Use Types Packs/Day Years [...] on file documented as of this encounter Plan of Treatment Upcoming Encounters Date Type Department Care Team (Late st Contact Info) Description 03/27/2025 3:20 PM EST Office Visit [facility] [address] [place] [phone] Milly Ramos PA [address] [facility] [address] [place] [address] documented as of this encounter Visit Diagnoses Not on filedocumented in this encounter Additional Health Concerns Assessment Noted Time A Body Mass Index follow-up plan has been documented for the patient 11/08/2024 8:54 AM EDT documented as of this encounter Care Teams Veterinary Toxicologist Relationship Specialty Start Date End Date Yadi Martino APRN [address] [place] [address] PCP - General 02/17/24 documented as of this encounter
--- OUTSIDE RECORDS SUMMARY | 2024-12-23 09:20 | XMS_ITS | Encounter Summary ---
Author Organization [facility] Address [address] [place] [address] Care Team Providers Care Beef Breaker Name Role Phone MartinoYadi mcfadden DEIDRE Primary Care Provider +1- [phone] Reason for Visit * Reason Onset Date Comments HCN - Patient Message 10/13/2024 Encounter Details Date Type Department Care Team (Late st Contact Info) Description 10/13/2024 Telephone [facility] Diabetes Education [address] [place] [address] Jazmyn Graham [address] [facility] [address] [place] [address] HCN - Patient Message Social History Tobacco Use Types Packs/Day Years [...] as of this encounter Miscellaneous Notes * Telephone Encounter - Justin Ramsey - 10/13/2024 4:49 PM EDT Patient Phone Message Reason for Call: Pt is requesting a call to rs her appt.. Best contact number and optimal time of day to reach caller: [phone] Note: Please do not reply to this message. Follow-up communication and further actions as a result of this message need to be communicated with the patient directly, if the patient is not active onMyChart. If the patient is active on MyChart, they will receive notification of the communication/outcome via MyChart. documented in this encounter Plan of Treatment Upcoming Encounters Date Type Department Care Team (Late st Contact Info) Description 03/27/2025 3:20 PM EST [facility] [address] [place] [address] Milly Ramos PA [address] [facility] [address] [place] [phone] documented as of this encounter Visit Diagnoses Not on filedocumented in this encounter Additional Health Concerns Assessment Noted Time A Body Mass Index follow-up plan has been documented for the patient 09/21/2024 10:01 AM EDT documented as of this encounter Care Teams Beef Breaker Relationship Specialty Start Date End Date Yadi Martino APRN [address] [place] [address] PCP - General 02/17/24 documented as of this encounter
--- OUTSIDE RECORDS SUMMARY | 2024-12-23 09:20 | XMS_ITS | Clinical Summary ---
Author Organization Healthcare Address [address] [place] [address] Care Team Providers Care Casino Shift Manager Name Role Phone Yadi Martino DEIDRE Primary Care Provider [phone]- [phone] Allergies No known active allergies Medications B-D ULTRA-FINE 33 LANCETS misc Used to check blood glucose 4-6 times per day 03/05/20 20 Active sertraline (Zoloft) 100 MG tablet Take 1 tablet (100 mg) by mouth 1 (one) time each day. 07/13/19 24 Active norgestimate-eth inyl estradiol (Ortho Tri-Cyclen,Estelle ssa) 0.18/0.215/0.25 MG-35 MCG tablet Take 1 tablet by mouth 1 (one) time each day. 07/01/19 24 Active meloxicam (Mobic) 15 MG tablet 07/15/19 24 Active nitrofurantoin, macrocrystal-mon ohydrate, (Macrobid) 100 MG capsule TAKE ONE CAPSULE BY MOUTH TWICE DAILY FOR 7 DAYS -- FINISH ALL MEDICINE -- --TAKE WITH A MEAL/FOOD-- 09/04/19 24 Active insulin glargine (Lantus SoloStar) 100 UNIT/ML injection penIndications:T ype 1 diabetes mellitus without complication Inject 22 units once daily in case of insulin pump malfunction 15 mL 1 09/17/19 25 Active insulin aspart (NovoLOG) 100 UNIT/ML injection vialIndications: Type 1 diabetes mellitus without complication USE IN INSULIN PUMP. TDD 100 UNITS 90 mL 1 12/16/19 25 Active glucagon (Baqsimi One Pack) 3 MG/DOSE powder Nasal PowderIndication s:Type 1 diabetes mellitus without complication USE WITH SEVERE HYPOGLYCEMIA DIRECTED 6 each 12/16/19 25 Active acetone, urine, test stripIndications :Type 1 diabetes mellitus without complication 1 strip as needed for high blood sugar. 50 each 3 12/16/19 25 026 Active glucose blood (Contour Next Test) test stripIndications :Type 1 diabetes mellitus without complication Check blood glucose 4+ times daily in event of CGM failure. 100 each 11 12/16/19 25 Active Contour Next Test test strip 03/05/20 20 025 Discontin ued(Reord er) Glucose Blood (CONTOUR NEXT TEST ) USE TO TEST BLOOD SUGAR 4-6 TIMES DAILY 03/05/20 20 025 Discontin ued(Thera py completed ) acetone, urine, test stripIndications :Type 1 diabetes mellitus without complication 1 strip if needed for high blood sugar. 50 each 3 02/17/20 24 025 Discontin ued(Reord er) insulin aspart (NovoLOG) 100 UNIT/ML injection vialIndications: Type 1 diabetes mellitus without complication USE IN INSULIN PUMP. TDD 100 UNITS 90 mL 1 09/17/19 25 025 Discontin ued(Reord er) glucagon (Baqsimi One Pack) 3 MG/DOSE powder Nasal PowderIndication s:Type 1 diabetes mellitus without complication USE WITH SEVERE HYPOGLYCEMIA DIRECTED 6 each 10/21/19 25 025 Discontin ued(Reord er) insulin aspart (NovoLOG) 100 UNIT/ML injection vialIndications: Type 1 diabetes mellitus without complication USE IN INSULIN PUMP. TDD 100 UNITS 90 mL 1 12/15/19 25 025 Discontin ued(Reord er) acetone, urine, test stripIndications :Type 1 diabetes mellitus without complication 1 strip as needed for high blood sugar. 50 each 3 12/15/19 25 025 Discontin ued(Reord er) Contour Next Test test stripIndications :Type 1 diabetes mellitus without complication Check blood glucose 4+ times daily in event of CGM failure. 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 02/25/2021 Abdominal pain 02/25/2021 Diabetes mellitus 12/11/2014 Encounters Date Type Department Care Team Description 12/15/2024 Refill [facility] Endocrinology [address] [place] [address] Deepika Baker Type 1 diabetes mellitus without complication 12/14/2024 2:40 PM EDT Office Visit [facility] Endocrinology [address] [place] [address] Milly Ramos PA Type 1 diabetes mellitus without complication (Primary Dx) 12/14/2024 Travel 12/08/2024 Telephone [facility] Endocrinology [address] [place] [address] Milly Ramos PA 11/07/2024 3:00 PM EDT Clinical Support [facility] Diabetes Education [address] [place] [address] Type 1 diabetes mellitus without complication (Primary Dx) 11/07/2024 Travel 10/19/2024 Refill [facility] Endocrinology [address] [place] [address] Milly Ramos PA Type 1 diabetes mellitus without complication 10/13/2024 Telephone [facility] [address] [place] [address] Jazmyn Graham HCN - Patient Message from Last 3 Months Immunizations Immunization Administration Dates Next Due DTaP 05/22/2004,03/20/2004,01/15/2004 DTaP / IPV 08/07/2008 DTaP, Unspecified 2003 Hep A, Unspecified 11/22/2010,08/07/2008 Hep A, ped/adol, 2 dose 11/22/2010,11/22,08/07/2008,08/07 Hep B, Adolescent or Pediatric 11/22/2010,2008,03/20/2004 Hib (PRP-T) 05/22/2004,03/20/2004,01/15/2004 IPV 12/06/2008,03/20/2004,01/15/2004 Influenza, injectable, MDCK, preservative free, quadrivalent 02/06/2023 MMR 12/06/2008,08/07/2008 Meningococcal MCV4P 09/07/2015 Pneumococcal Conjugate PCV 7 08/07/2008, 05/22/2004,03/20/2004,01/14 Tdap 09/07/2015 Varicella 12/06/2008,08/07/2008 Family History Medical History Relation Name Comments No Known Problems Father Diabetes type II Maternal Grandfather Opa Hypothyroidism Mother Mikayla Patino Thyroid disease Mother Mikayla Patino Relation Name Status Comments Father Maternal Grandfather Opa Mother Mikayla Patino Social History Tobacco Use Types Packs/Day Years [...] on file Sexual Orientation Not on file Last Filed Vital Signs Vital Sign Reading Time Taken Comments Blood Pressure 121/77 12/14/2024 2:40 PM EDT Pulse 91 12/14/2024 2:40 PM EDT Temperature 37.3 C (99.1 F) 06/12/2020 9:26 AM EST Respiratory Rate 24 02/25/2021 8:23 AM EST Oxygen Saturation 99% 02/25/2021 8:23 AM EST Inhaled Oxygen Concentration - - Weight 58.9 kg (129 lb 13.6 oz) 12/14/2024 2:40 PM EDT Height 167.6 cm (5' 6 ) 12/14/2024 2:40 PM EDT Body Mass Index 20.96 12/14/2024 2:40 PM EDT Plan of Treatment Upcoming Encounters Date Type Department Care Team (Late st Contact Info) Description 03/27/2025 3:20 PM EST Office Visit [facility] Endocrinology [address] [place] [address] Milly Ramos PA [address] [place] [address] Health Maintenance Due Date Last Done Comments [facility]-Depression Screening 2003 [facility]-HIV Screening 2003 [facility]-Hepatitis C Screening 2003 [facility]-/Child/Adol SDOH Screenings 2003 Diabetes: Dental Exam 11/11/2013 HPV Vaccines (1 - 3-dose series) 11/11/2018 [facility]- SDOH Screenings 11/11/2021 [facility]-Adult SDOH Screenings 11/11/2021 [facility]-Pneumococcal Vaccine: Pediatrics (0 to 5 Years) and At-Risk Patients (6 to 49 Years) (1 of 2 - PCV) 11/11/2022 08/07/2008, 05/22/2004, 03/20/2004, Additional history exists [id number] Vaccine (1 - season) 2023 [facility]-Pap Smear 11/11/2024 [facility]-Influenza Vaccine (#1) 2024 02/10/2024, [facility]-Diabetes: Hemoglobin A1C 06/13/2025 12/14/2024, 09/16/2024, 05/19/2024, Additional history exists [facility]-DTaP,Tdap,and Td Vaccines (6 - Td or Tdap) 09/06/2025 09/07/2015, 08/07/2008, 05/22/2004, Additional history exists [facility]-Zoster Vaccines (1 of 2) 11/11/2053 12/06/2008, 08/07/2008 [facility]-HIB Vaccines Aged Out 05/22/2004, 04/2003, 01/15/2004 No longer eligible based on patient's age to complete this topic [facility]-IPV Vaccines Completed 12/06/2008, , 03/20/2004, Additional history exists [facility]-Varicella Vaccines Completed 12/06/2008, 2008 [facility]-Hepatitis A Vaccines Completed 011, 11/22/2010, 11/22/2010, Additional history exists [facility]-Hepatitis B Vaccines Completed 011, 12/06/2008, 03/20/2004 [facility]-Rotavirus Vaccines Aged Out No lo nger eligible based on patient's age to complete this topic Procedures Procedure Name Priority Date/Time Associated Diagnosis Comments LIPID PROFILE, PLASMA Routine 12/14/2024 3:35 PM EDT Type 1 diabetes mellitus without complication COMPREHENSIVE METABOLIC PANEL, PLASMA Routine 12/14/2024 3:35 PM EDT Type 1 diabetes mellitus without complication TSH REFLEX FT4 Routine 12/14/2024 3:35 PM EDT Type 1 diabetes mellitus without complication ALBUMIN, URINE, RANDOM Routine 12/14/2024 3:35 PM EDT Type 1 diabetes mellitus without complication POCT GLYCOSYLATED HEMOGLOBIN (HGB A1C) Routine 12/14/2024 3:10 PM EDT Type 1 diabetes mellitus without complication from Last 3 Months Results * TSH Reflex FT4 (12/14/2024 3:35 PM EDT) Thyroid Stimulating Hormone, Plasma 1.08 0.40 - 4.20 uIU/mL 12/14/2024 6:57 PM EDT [facility] Blood Venous blood specimen / Unknown Venipuncture / Unknown 12/14/2024 3:35 PM EDT 12/14/2024 4:42 PM EDT Narrative [facility] - 12/14/2024 6:57 PM EDT Trimester Specific Ranges TSH ( IU/mL) 1st Trimester 0.1 - 3.0 2nd Trimester 0.19 - 4.06 3rd Trimester 0.3 - 3.7 us Milly [facility] LAB BLOOD ORDERABLES Final Result [facility] [address] [place] [address] * Albumin-creatinine ratio, urine, random (12/14/2024 3:35 PM EDT) Microalbumin, Urine <1.2 <1.9 mg/dL 12/14/2024 7:10 PM EDT [facility] Creatinine, Urine 15 mg/dL 12/14/2024 7:10 PM EDT [facility] Albumin/Creatin ine Ratio 12/14/2024 7:10 PM EDT [facility] Comment:Unable to calculate, at least one value is above or below the detection limit. Urine Urine specimen obtained by clean catch procedure / Unknown Non-blood Collection / Unknown 12/14/2024 3:35 PM EDT 12/14/2024 4:42 PM EDT [facility] URINE ORDERABLES Final Result [facility] [address] [place] [address] * Lipid panel (12/14/2024 3:35 PM EDT) Cholesterol, Plasma 192 <200 mg/dL 12/15/2024 4:00 PM EDT [facility] Comment: Cholesterol Reference Range (age >17 years): Desirable <200 mg/dL Borderline 200 to 239 mg/dL Undesirable >239 mg/dL HDL 118 >=50 mg/dL 12/15/2024 4:00 PM EDT [facility] Comment: HDL Cholesterol Reference Ranges (age >17 years): Female, acceptable > or = 50 mg/dL Male, acceptable > or = 40 mg/dL Triglycerides, Plasma 64 <150 mg/dL 12/15/2024 4:00 PM EDT [facility] Comment: Triglyceride Reference Range (age >17 years): Desirable: <150 mg/dL Borderline high: 150 to 199 mg/dL High: 200 to 499 mg/dL Very high: >499 mg/dL Increased risk of pancreatitis: >1000 mg/dL Cholesterol/HDL Ratio 2 12/15/2024 4:00 PM EDT [facility] LDL, Calculated 62 <100 mg/dL 4:00 PM EDT [facility] Comment: LDL Cholesterol [...] 12 hours? Unknown 12/15/2024 4:00 PM EDT [facility] Blood Venous blood specimen / Unknown Venipuncture / Unknown 12/14/2024 3:35 PM EDT 12/14/2024 4:42 PM EDT us [facility] LAB BLOOD ORDERABLES Final Result [facility] [address] [place] [address] * (ABNORMAL) Comprehensive metabolic panel (12/14/2024 3:35 PM EDT) Glucose, Plasma 127(H) 74 - 99 mg/dL 12/15/2024 2:58 PM EDT [facility] BUN, Plasma 13 7 - 21 mg/dL 12/15/2024 2:58 PM EDT [facility] Creatinine, Plasma 0.81 0.60 - 1.10 mg/dL 12/15/2024 2:58 PM EDT [facility] BUN/Creatinine Ratio 16 12/15/2024 2:58 PM EDT [facility] Sodium, Plasma 144 136 - 145 mmol/L 12/15/2024 2:58 PM EDT [facility] Potassium, Plasma 4.9 3.6 - 4.9 mmol/L 12/15/2024 2:58 PM EDT [facility] Chloride, Plasma 105 97 - 107 mmol/L 12/15/2024 2:58 PM EDT [facility] CO2, Plasma 20(L) 22 - 29 mmol/L 12/15/2024 2:58 PM EDT [facility] Anion Gap 19(H) 6 - 16 mmol/L 12/15/2024 2:58 PM EDT [facility] Total Calcium, Plasma 9.7 8.9 - 10.2 mg/dL 12/15/2024 2:58 PM EDT [facility] Total Protein 7.6 6.3 - 7.9 g/dL 12/15/2024 2:58 PM EDT [facility] Albumin, Plasma 4.9 3.5 - 5.2 g/dL 12/15/2024 2:58 PM EDT [facility] AST, Plasma 21 10 - 35 U/L 12/15/2024 2:58 PM EDT [facility] ALT, Plasma 10 10 - 35 U/L 12/15/2024 2:58 PM EDT [facility] Alkaline Phosphatase, Plasma 94 35 - 104 U/L 12/15/2024 2:58 PM EDT [facility] Total Bilirubin, Plasma 0.5 0.2 - 1.1 mg/dL 12/15/2024 2:58 PM EDT [facility] eGFRcr 106.1 mL/min/1.7 3m*2 12/15/2024 2:58 PM EDT [facility] Comment:Reported eGFRcr in m L/min/1.73m2 is based the CKD-EPI 2020 equation that does not use a race coefficient. Blood Venous blood specimen / Unknown Venipuncture / Unknown 12/14/2024 3:35 PM EDT 12/14/2024 4:42 PM EDT us Mil[facility] BLOOD ORDERABLES Final Result [facility] [address] [place] [address] * POCT glycosylated hemoglobin (Hb A1C) (12/14/2024 3:10 PM EDT) POCT Hemoglobin A1C 6.0 <5.7% Non-Diabet ic % Risk I/O LAB Kit Lot Number [id number] [facility] [employer] [facility] Kit Expiration Date 09/2026 [employer] Blood Venous blood specimen / Unknown 12/14/2024 3:10 PM EDT Mil[facility] POINT OF CARE TEST EN TER/EDIT ORDERABLES Final Result [facility] [address] [place] [address] from Last 3 Months Insurance [facility] Care Teams Casino Shift Manager Relationship Specialty Start Date End Date Yadi Martino APRN [address] [place] [address] PCP - General 02/17/24
--- OUTSIDE RECORDS SUMMARY | 2024-12-23 09:20 | XMS_ITS | Encounter Summary ---
Author Organization [facility] Address [address] [place] [address] Care Team Providers Care Criminal Justice Faculty Name Role Phone Jose Antonio Contreras MD Primary Care Provider [phone] Michael Thakur MD Primary Care Provider [phone] Yadi Martino APRN Primary Care Provider [phone]- [phone] Reason for Visit * Reason Comments Med Refill Encounter Details Date Type Department Care Team (Late st Contact Info) Description 10/03/2021 Refill [facility] Endocrinology [address] [place] [address] Siobhan Farrar, DEMAND PLANNER [address] [facility] [address] [place] [address] Social History Tobacco Use Types Packs/Day Years [...] encounter Miscellaneous Notes * Telephone Encounter - Bucky Madrigal, PharmD - 10/04/2021 8:08 AM EDT Per protocol, 1 medication(s), Novolog, has been approved for 40 day supply with 1 refill(s). The medication refill request(s) has been sent to [facility]. Enough refills until appointment on 11/12/21 with Siobhan Farrar. Please request additional refills atappointment. documented in this encounter Plan of Treatment Upcoming Encounters Date Type Department Care Team (Late st Contact Info) Description 03/27/2025 3:20 PM EST [facility] [address] [place] [address] Milly Ramos PA [address] [facility] [address] [place] [address] documented as of this encounter Visit Diagnoses Not on filedocumented in this encounter Care Teams Criminal Justice Faculty Relationship Specialty Start Date End Date Jose Antonio Contreras MD [address] [place] [address] PCP - General 08/31/20 11/11/21 Michael Thakur MD [address] [place] [address] [address] [place] [address] PCP - General 11/12/21 02/16/24 Yadi Martino APRN [address] [place] [address] PCP - General 02/17/24 documented as of this encounter
--- OUTSIDE RECORDS SUMMARY | 2024-12-23 09:20 | XMS_ITS | Encounter Summary ---
Author Organization Healthcare Address [address] [place] [address] Care Team Providers Care Bass Fisher Name Role Phone Yadi Martino APRN Primary Care Provider [phone] Reason for Visit * Reason Onset Date Comments Med Refill 12/15/2024 Encounter Details Date Type Department Care Team (Late st Contact Info) Description 12/15/2024 Refill [facility] [address] [place] [address] Deepika Baker [address] [address] Type 1 diabetes mellitus without complication Social History Tobacco Use Types Packs/Day Years [...] as of this encounter Miscellaneous Notes * Addendum Note - Princess Brendon Solis - 12/15/2024 1:48 PM EDTAddended by: PRINCESS Brendon SOLIS on: 12/15/2024 01:48 PM Modules accepted: Orders documented in this encounter Plan of Treatment Upcoming Encounters Date Type Department Care Team (Late st Contact Info) Description 03/27/2025 3:20 PM EST Office Visit [facility] [address] [place] [address] Milly Ramos PA [address] [facility] [address] [place] [address] Scheduled Orders Name Type Priority Associated Diagnoses Orde r Schedule Comprehensive metabolic panel Lab Routine Type 1 diabetes mellitus without complication Expected: 12/15/2024 (Approximate), Expires: 06/18/2026 Lipid panel Lab Routine Type 1 diabetes mellitus without complication Expected: 12/15/2024 (Approximate), Expires: 06/18/2026 documented as of this encounter Visit Diagnoses Diagnosis Type 1 diabetes mellitus without complication Type I (juvenile type) diabetes mellitus without mention of complication, not stated as uncontrolled documented in this encounter Additional Health Concerns Assessment Noted Time A Body Mass Index follow-up plan has been documented for the patient 12/14/2024 3:36 PM EDT documented as of this encounter Care Teams Bass Fisher Relationship Specialty Start Date End Date Yadi Martino APRN [address] [place] [address] PCP - General 02/17/24 documented as of this encounter
--- OUTSIDE RECORDS SUMMARY | 2024-12-23 09:20 | XMS_ITS | Encounter Summary ---
Author Organization [facility] Address [address] [place] [address] Care Team Providers Care Dumper Bailer Operator Name Role Phone Yadi Martino APRN Primary Care Provider [phone]- [phone] Encounter Details Date Type Department Care Team (Latest Contact Info) Description 12/14/2024 Travel Social History Tobacco Use Types Packs/Day [...] EST Office Visit [facility] [address] [place] [address] Milly Ramos PA [address] [facility] [address] [place] [address] documented as of this encounter Visit Diagnoses Not on filedocumented in this encounter Additional Health Concerns Assessment Noted Time A Body Mass Index follow-up plan has been documented for the patient 12/14/2024 3:36 PM EDT documented as of this encounter Care Teams Dumper Bailer Operator Relationship Specialty Start Date End Date Yadi Martino APRN [address] [place] [address] PCP - General 02/17/24 documented as of this encounter
--- OUTSIDE RECORDS SUMMARY | 2024-12-23 09:20 | XMS_ITS | Encounter Summary ---
Author Organization Healthcare Address [address] [place] [address] Care Team Providers Care Legal Referee Name Role Phone Yadi Martino DEIDRE Primary Care Provider [phone]- [phone] Encounter Details Date Type Department Care Team (Late st Contact Info) Description 12/08/2024 Telephone [facility] [address] [place] [address] Milly Ramos PA [address] [facility] [address] [place] [address] Social History Tobacco Use Types Packs/Day Years [...] encounter Miscellaneous Notes * Telephone Encounter - Poonam Colorado RN - 12/12/2024 1:20 PM EDT Called to inform pt that her Jury Duty Accommodation Letter has been completed and signed by her provider, and that I have faxed it to the fax number she has provided. She verbalized understanding and no other concerns voiced. * Telephone Encounter - Poonam Colorado RN - 12/09/2024 8:58 AM EDT Returned pt's call regarding wanting a letter to excuse her from Jury Duty due to her having diabetes. I informed her that we can provide a diagnosis statement letter, however, we can not excuse her from Jury Duty, that decision is up to the Wharf Laborer. I advised to give us a few days to be completed and signed by provider and we will fax it to the number provided. She verbalized understanding and no other concerns voiced. * Telephone Encounter - Giselle El - 12/08/2024 12:15 PM EDT Patient Phone Message Reason for Call: Pt received a letter for jury duty and asks if she can get a letter excusing her because she has Diabetes. If this can be completed can this be faxed to her at work fax [phone] Best contact number and optimal time of day to reach caller: [phone] Note: Please do not reply to this message. Follow-up communication and further actions as a result of this message need to be communicated with the patient directly, if the patient is not active onMyChart. If the patient is active on MyChart, they will receive notification of the communication/outcome via [employer] documented in this encounter Plan of Treatment Upcoming Encounters Date Type Department Care Team (Late st Contact Info) Description 03/27/2025 3:20 PM EST Office Visit [facility] Endocrinology [address] [place] [address] Milly Ramos PA [address] [place] [address] documented as of this encounter Visit Diagnoses Diagnosis Type 1 diabetes mellitus without complication Type I (juvenile type) diabetes mellitus without mention of complication, not stated as uncontrolled documented in this encounter Additional Health Concerns Assessment Noted Time A Body Mass Index follow-up plan has been documented for the patient 11/08/2024 8:54 AM EDT documented as of this encounter Care Teams Legal Referee Relationship Specialty Start Date End Date Yadi Martino APRN [address] [place] [address] PCP - General 02/17/24 documented as of this encounter
== END 2024-12-21 23:59 ==
LOC: LAB.DROPOF 12-23 09:18
PROVIDERS: PCP Nurse Practitioner Family; Visit Provider Nurse Practitioner Family
DX: N39.0 Urinary tract infection, site not specified (principal)
CPT/HCPCS: 87086